=== PATIENT | male | born 1960 | race Caucasian/White ===

== ENCOUNTER 2016-10-17 05:51 | Day surgery (SDC) | payer OTHER ==
[2016-10-16 10:06] VITALS: BMI 43.0
[~2016-10-17 05:51] MED LIST: DEXAMETHASONE SOD PHOSPHATE 10 MG/ML 1 ML VIAL IV ONE; LACTATED RINGERS 1,000 ML IV SCH; MIDAZOLAM 2 MG/2 ML VIAL IV PRN; ONDANSETRON 4 MG/2 ML VIAL IVP ONE; SCOPOLAMINE 1.5MG/72HR PATCH TRANSDERM ONE; ceFAZolin 3 GM in SODIUM CHLORIDE 0.9% 100 ML IVPB ONE
[2016-10-17] MEDS ORDERED: LIDOCAINE 1% 20 ML VIAL (10MG/ML) FOR IV START INTRADERMA ONE (06:31)
[2016-10-17 06:35] LABS: Glucose,Whole Blood 107 mg/dL (75-99)
[2016-10-17] MEDS ORDERED: GLYCOPYRROLATE 0.2 MG/ML 2 ML VIAL ONE (07:25)
[2016-10-17] MEDS ORDERED: NEOSTIGMINE 1 MG/ML 10 ML VIAL ONE (07:25)
[2016-10-17] MEDS ORDERED: LIDOCAINE 1% INJ 10MG/ML (20 ML MDV) ONE (07:25)
[2016-10-17] MEDS ORDERED: SUCCINYLCHOLINE CHLORIDE VIAL 200 MG/10 ML VIAL IV ONE (07:25)
[2016-10-17] MEDS ORDERED: PROPOFOL 10 MG/ML 20 ML VIAL IV ONE (07:25)
[2016-10-17] MEDS ORDERED: ROCURONIUM BROMIDE 10 MG/ML 10 ML VIAL IV ONE (07:25)
[2016-10-17] MEDS ORDERED: PHENYLEPHRINE-0.9% NACL SYG 1 MG/10 ML SYRINGE ONE (07:25)
[2016-10-17] MEDS ORDERED: fentaNYL (PF) 50 MCG/ML 2 ML AMP ONE (07:25)
[2016-10-17] MEDS ORDERED: MIDAZOLAM 2 MG/2 ML VIAL ONE (07:25)
[2016-10-17] MEDS ORDERED: SODIUM CHLORIDE 0.9% 100 ML with CLINDAMYCIN 900 MG IV ONE ×2 (07:32)
[2016-10-17] MEDS ORDERED: CLINDAMYCIN 600 MG in SODIUM CHLORIDE 0.9% 1,000 ML IRRIGATION ONE (08:05)
[2016-10-17] MEDS: HYDROmorphone 1 MG/ML 1 ML SYRINGE IVP PRN ×3 (08:08→09:08)
[2016-10-17] MEDS ORDERED: BUPIVACAINE (PF) 0.5% 30 ML VIAL SQ ONE (08:22)
[2016-10-17] MEDS ORDERED: LACTATED RINGERS 1,000 ML IV ONE (08:35)
[2016-10-17] MEDS ORDERED: ONDANSETRON 4 MG/2 ML VIAL IVP PRN (08:52)
[2016-10-17] MEDS ORDERED: TEMAZEPAM 15 MG CAP PO PRN (08:52)
[2016-10-17] MEDS ORDERED: hydrOXYzine PAMOATE 25 MG CAP PO PRN (08:52)
[2016-10-17] MEDS ORDERED: HYDROmorphone 1 MG/ML 1 ML SYRINGE IVP PRN ×3 (08:52)
[2016-10-17] MEDS ORDERED: diphenhydrAMINE 25 MG CAP PO PRN (08:52)
[2016-10-17] MEDS ORDERED: SENNOSIDES-DOCUSATE SODIUM 1 EACH TAB PO PRN (08:52)
[2016-10-17] MEDS ORDERED: HYDROcodone/APAP 7.5-325MG 1 EACH TAB PO PRN (08:55)
[2016-10-17 10:45] LABS: Glucose,Whole Blood 162 mg/dL (75-99)
[2016-10-17 11:28] LABS: Glucose,Whole Blood 159 mg/dL (75-99)
[2016-10-17] MEDS ORDERED: BENZOCAINE/MENTHOL LOZENG 1 EACH LOZENGE MUCOUS MEM PRN (13:50)
[2016-10-17] MEDS: ceFAZolin 3 GM in SODIUM CHLORIDE 0.9% 100 ML IVPB SCH ×2 (15:47→23:24)
[2016-10-17 16:05] LABS: Basophils # (A) 0.1 k/uL (0-0.2); Basophils % (A) 1 %; CH 30.7; Eosinophils % (A) 0 %; HDW 2.85; HGB 16.5 gm/dL (13.0-17.5); Luc # (Auto) 0.06; Luc % (Auto) 1; Lymphocytes # (A) 0.6 k/uL (1.0-4.8); Lymphocytes % (A) 5 %; MCH 30.3 pg (25.0-35.0); MCHC 34.4 g/dL (31.0-37.0); MCV 88.1 fL (80.0-100.0); Mean Platelet Volume 6.9; Monocytes # (A) 0.4 k/uL (0-1.0); Monocytes % (A) 3 %; Neutrophils # (A) 11.5 k/uL (1.3-7.7); Neutrophils % (A) 91 %; RBC 5.45 m/uL (4.30-5.90); RDW 13.9 % (11.5-15.5); WBC 12.7 k/uL (3.8-10.6)
--- NOTE | 2016-10-17 16:52 | CONS ---
DATE OF CONSULTATION: REASON FOR CONSULTATION: Tachycardia. Patient is a very pleasant 56-year-old gentleman who came in with morbid obesity and came in for left rotator cuff repair and the patient denied any fever or chills. The patient denied any nausea, vomiting. Patient underwent surgery today. Patient did not pass gas yet. Patient has multiple other medical problems including hypertension, diabetes mellitus, hyperlipidemia. Patient is on Keflex at home. Patient does not know why he is on Keflex. Patient denied any significant pain. Patient pain is well controlled because of the nerve block he received during the surgery. REVIEW OF SYSTEMS: CONSTITUTIONAL: No fever, no malaise, no fatigue. HEENT: No recent visual problems or hearing problems. Denied any sore throat. CARDIOVASCULAR: No chest pain, orthopnea, PND, no palpitations, no syncope. PULMONARY: No shortness of breath, no cough, no hemoptysis. GASTROINTESTINAL: No diarrhea, no nausea, no vomiting, no abdominal pain. Normoactive bowel sounds. NEUROLOGICAL: No headaches, no weakness, no numbness. HEMATOLOGICAL: Denies any bleeding or petechiae. GENITOURINARY: Denies any burning micturition, frequency, or urgency. MUSCULOSKELETAL/RHEUMATOLOGICAL: Denies any joint pain, swelling, or any muscle pain. ENDOCRINE: Denies any polyuria or polydipsia. The rest of the 14 point review of systems is negative. PAST MEDICAL HISTORY: Significant for diabetes mellitus, hyperlipidemia, hypertension, benign prostatic hypertrophy, sleep apnea uses CPAP machine at home. Patient has had orthopedic surgeries in the past and joint replacements in the past. SOCIAL HISTORY: Former smoker. Quit smoking in 1992. Used to smoke 1 pack per day. Denied any alcohol abuse or any drug abuse. FAMILY HISTORY: Significant for skin cancer. PHYSICAL EXAMINATION: VITAL SIGNS: Temperature 98.5, pulse of 111, respiratory rate of 17, blood pressure is 123/81. Saturating at 92% on room air. GENERAL: The patient is alert and oriented x3, not in any acute distress. Well developed, well nourished. HEENT: Pupils are round and equally reacting to light. EOMI. No scleral icterus. No conjunctival pallor. Normocephalic, atraumatic. No pharyngeal erythema. No thyromegaly. CARDIOVASCULAR: S1 and S2 present. Patient is tachycardic. Patient has sinus tachycardia. No murmurs, rubs, or gallops were appreciated. PULMONARY: Chest is clear to auscultation, no wheezing or crackles. ABDOMEN: Soft, nontender, nondistended, normoactive bowel sounds. No palpable organomegaly. MUSCULOSKELETAL: defer to orthopedic surgery. EXTREMITIES: No cyanosis, clubbing, or pedal edema. NEUROLOGICAL: Gross neurological examination did not reveal any focal deficits. SKIN: No rashes. LABORATORY DATA: None available. ASSESSMENT AND PLAN: 1. Possible sinus tachycardia unsure of the exact etiology. We will just continue to monitor. We will obtain TSH level. Also obtain EKG to make sure it is sinus tachycardia. No further intervention at this point of time. It may be related to anticholinergics he is receiving and also scopolamine he had during the time of surgery, but anyways we will just monitor him for now. 2. Hypertension. I recommend to hold off Lisinopril at this point of time to prevent any perioperative hypertension. 3. Hyperlipidemia. 4. Diabetes mellitus type 2 and patient started eating now. Can be resumed on a metformin along with sliding scale insulin. 5. The patient will be continued on his home medications except for Lisinopril and we will continue to follow and we will obtain a TSH for his tachycardia. It it is mostly related to scopolamine patch he received during surgery. Thanks for letting me participate in this patient's care. We will continue to follow the patient on an as-needed basis. Patient's primary care physician is Dr. Jean Paul Vasquez.
[2016-10-17 17:02] LABS: Glucose,Whole Blood 138 mg/dL (75-99)
[2016-10-17] MEDS: LACTATED RINGERS 1,000 ML IV SCH ×2 (17:48→18:05)
[2016-10-17] MEDS: GEMFIBROZIL 600 MG TAB PO SCH (18:04)
[2016-10-17 20:01] LABS: Glucose,Whole Blood 152 mg/dL (75-99)
[2016-10-17] MEDS ORDERED: ATORVASTATIN 20 MG TAB PO SCH (21:00)
[2016-10-17] MEDS ORDERED: TERAZOSIN 2 MG CAP PO SCH (21:00)
[2016-10-17] MEDS: HYDROcodone/APAP 7.5-325MG 1 EACH TAB PO PRN (21:06)
[2016-10-18 01:10] VITALS: BP 155/71; PULSE 87; RESP 16; TEMP 97
[2016-10-18] MEDS: HYDROcodone/APAP 7.5-325MG 1 EACH TAB PO PRN ×2 (02:09→08:00)
[2016-10-18] MEDS: LACTATED RINGERS 1,000 ML IV SCH (05:36)
[2016-10-18 07:20] LABS: Anion Gap 12 mmol/L; Blood Urea Nitrogen 19 mg/dL (9-20); Calcium 9.4 mg/dL (8.4-10.2); Carbon Dioxide 27 mmol/L (22-30); Chloride 103 mmol/L (98-107); Glucose 130 mg/dL (74-99); Non-African American GFR(MDRD) >60 (>60 ml/min/1.73 sqM); Potassium 4.2 mmol/L (3.5-5.1); Sodium 142 mmol/L (137-145)
[2016-10-18 07:25] LABS: Glucose,Whole Blood 150 mg/dL (75-99)
[2016-10-18] MEDS ORDERED: metFORMIN 500 MG TAB PO SCH (07:30)
[2016-10-18] MEDS: GEMFIBROZIL 600 MG TAB PO SCH (08:01)
[2016-10-18] MEDS ORDERED: NIACIN TR 500 MG CAPSULE.ER PO SCH (09:00)
--- NOTE | 2016-10-18 09:08 | P.DS ---
Providers Expected date of discharge: 10/18/16 Attending physician: Juve Edwards Consults: 10/17/16 08:52 Consult Physician Routine Consulting Provider: Edson Messina Consult Reason/Comments: medical management Do you want consulting provider notified?: Yes Primary care physician: Jean Paul Vasquez - Discharge Diagnosis(es) (1) Rotator cuff tear Patient was admitted to the OR on 10/17/2016 to undergo open repair of left rotator cuff tear. He underwent the procedure well and tolerated without complication. He will discharge to home today. On day of discharge he is afebrile, vital signs stable, wound is benign, neurovascular status intact with full motor and sensation throughout the left upper extremity, 2+ radial pulses and less than 2 second cap refill present, no new complaints, no abdominal pain , and no calf pain. Review of systems negative for fever, chills, chest pain, shortness breath, nausea, vomiting, dizziness, headaches, rashes, bleeding, unsteady gait, slurred speech, calf pain or othe Current Visit: Yes Status: Acute Priority: Medium Patient Condition at Discharge: Good Plan - Discharge Summary New Discharge Prescriptions: Cephalexin [Keflex] 500 mg PO Q8HR #15 cap HYDROcodone/APAP 7.5-325MG [[place] 7.5-325] 1 - 2 tab PO Q4-6H PRN #60 tab PRN Reason: Pain Sennosides-Docusate Sodium [Senokot-S] 2 tab PO DAILY #30 tablet Discharge Medication List Dicyclomine HCl [Bentyl] 20 mg PO TID 07/18/16 [History] Gemfibrozil [Lopid] 600 mg PO AC-BID 07/18/16 [History] Lisinopril [Prinivil] 5 mg PO DAILY 07/18/16 [History] Niacin [Niacin ER] 1,000 mg PO DAILY 07/18/16 [History] Simvastatin [Zocor] 40 mg PO HS 07/18/16 [History] Terazosin [Hytrin] 2 mg PO HS 07/18/16 [History] metFORMIN HCL [Glucophage] 500 mg PO QAM 07/18/16 [History] Ibuprofen [Motrin] 800 mg PO DIRECTED PRN 10/16/16 [History] Cephalexin [Keflex] 500 mg PO Q8HR #15 cap 10/17/16 [Rx] HYDROcodone/APAP 7.5-325MG [[place] 7.5-325] 1 - 2 tab PO Q4-6H PRN #60 tab [Rx] Sennosides-Docusate Sodium [Senokot-S] 2 tab PO DAILY #30 tablet 10/17/16 [Rx] Follow up Appointment(s)/Referral(s): Juve Edwards DO [Doctor of Osteopathic Medicine] - 10 Days (10-14 days) Activity/Diet/Wound Care/Special Instructions: Keep incision clean and dry Change dressing daily May shower in 3 days if no drainage from incision Keep arm sling/abductor pillow in place except when bathing Follow up with Dr. Edwards in 10-14 days. Call [facility] with any questions or concerns. [phone] Discharge Disposition: HOME SELF-CARE
--- NOTE | 2016-10-22 11:52 | OP ---
DATE OF SERVICE: 10/17/2016 SURGEON: MARIA DEL CARMEN CASEY DO FOOD SAFETY TECHNICIAN: TAO SNOW NP PREOPERATIVE DIAGNOSIS: Torn rotator cuff tear. POSTOPERATIVE DIAGNOSIS: Torn rotator cuff tear. OPERATION: Resection of the distal left clavicle, revision acromioplasty and left rotator cuff repair. ANESTHESIA: ESTIMATED BLOOD LOSS: SPECIMENS REMOVED: COMPLICATIONS: OPERATIVE FINDINGS: DESCRIPTION OF PROCEDURE: Patient taken to the operative suite, placed in supine position. General inhalation anesthesia is performed by Department of Anesthesiology. Patient placed in beach chair position and arm secured. A Betadine prep was performed on the left shoulder. Sterile drapes applied in the usual manner. A midline invasive anterolateral incision developed of the acromion anterior, sharp dissection is carried out through the subcutaneous tissue. The inferior ligament is identified and dissected. The distal 1 cm of the clavicle is excised. The anterior deltoid muscle is dissected from the lateral border. The acromioclavicular ligament was revised. An anterolateral decompression acromioplasty is then performed. The width of the acromion is shaped with a bone saw and smoothed with a bone rasp. There is almost complete tearing of the supraspinatus tendon of the left rotator cuff. The area was irrigated. A #1 Ethibond suture was utilized in reapproximating the supraspinatus tendon. The area was irrigated with antibiotic solution. Deltoid was then reapproximated into the acromion with #1 Ethibond suture. The deep fascia was approximated with #1 Vicryl suture. The subcutaneous tissue was approximated with 2-0 Vicryl suture in subcuticular fashion. Skin approximated with 3-0 Quill suture in a subcuticular fashion. The incision was sealed with Dermabond. Sterile dressing was applied. The patient placed in abductor pillow splint. He was returned to the recovery room in satisfactory postop condition. GROSS PATHOLOGY: There is evidence of a partial tear in the left rotator cuff and the supraspinatus tendon demonstrating partial tear. [facility]
== END 2016-10-18 10:31 | disposition home or self-care (01) ==
LOC: OR 05:51 → 3SUR 08:48 → OR 10-18 10:31
PROVIDERS: ATTEND Orthopaedic Surgery
DX: S46.012A Strain of muscle(s) and tendon(s) of the rotator cuff of left shoulder, initial encounter (principal); E78.00 Pure hypercholesterolemia, unspecified; E11.9 Type 2 diabetes mellitus without complications; H91.90 Unspecified hearing loss, unspecified ear; E66.01 Morbid (severe) obesity due to excess calories; Z68.41 Body mass index [BMI] 40.0-44.9, adult; R00.0 Tachycardia, unspecified; I10 Essential (primary) hypertension; E78.5 Hyperlipidemia, unspecified; N40.0 Benign prostatic hyperplasia without lower urinary tract symptoms; G47.30 Sleep apnea, unspecified; Z99.89 Dependence on other enabling machines and devices; Z87.891 Personal history of nicotine dependence; Z88.0 Allergy status to penicillin; Z79.84 Long term (current) use of oral hypoglycemic drugs; Z79.891 Long term (current) use of opiate analgesic; Z79.899 Other long term (current) drug therapy; X58.XXXA Exposure to other specified factors, initial encounter
CPT/HCPCS: 23410; 23120; 64415; 80048; 84443; 85025; J2250; J0330; J1100; J2710; J0690; J2405; J2001; J3010; J1170; J2370; J2704

== ENCOUNTER → 2018-01-19 | Outpatient (CLI) | payer BC | END | disposition home or self-care (01) | LOC: LABPAT 10:33 | PROVIDERS: ATTEND Orthopaedic Surgery | DX: Z01.812 Encounter for preprocedural laboratory examination (principal); M16.11 Unilateral primary osteoarthritis, right hip | CPT/HCPCS: 87070 ==

== ENCOUNTER → 2018-01-19 | Outpatient (CLI) | payer BC, OTHER ==
[~2018-01-19] MED LIST changes: -DEXAMETHASONE SOD PHOSPHATE 10 MG/ML 1 ML VIAL IV ONE; -LACTATED RINGERS 1,000 ML IV SCH; -MIDAZOLAM 2 MG/2 ML VIAL IV PRN; -ONDANSETRON 4 MG/2 ML VIAL IVP ONE; +REGADENOSON 0.4 MG/5 ML SYRINGE IV ONE; -SCOPOLAMINE 1.5MG/72HR PATCH TRANSDERM ONE; -ceFAZolin 3 GM in SODIUM CHLORIDE 0.9% 100 ML IVPB ONE
--- NOTE | 2018-01-19 12:34 | EST ---
EXERCISE STRESS DATE OF SERVICE: 01/19/2018 AGE: 57 SEX: Male HT: 5'10" WT: 305 pounds PROTOCOL: Lexiscan Cardiolite STAGE: DURATION OF EXERCISE: HEART RATE REST: 81 BLOOD PRESSURE REST: 130/63 MAXIMUM HEART RATE ACHIEVED: 108 MAXIMUM BLOOD PRESSURE: 144/67 85% MPHR: 100% MPHR: METS: INDICATIONS: Hyperlipidemia. CLINICAL INFORMATION: Baseline EKG shows sinus rhythm, normal axis, normal intervals. Patient was given intravenous Lexiscan as per protocol. Did not have chest pain or diagnostic ST-segment depression. CONCLUSIONS: 1. Negative stress test by EKG criteria. 2. Cardiolite portion of the stress test will be reported separately. MMODL / IJN: [id number] /
--- NOTE | 2018-01-19 13:01 | NM ---
EXAMINATION TYPE: NM stress lexiscan cardiolite DATE OF EXAM: 01/19/2018 COMPARISON: NONE HISTORY: Hyperlipidemia TECHNIQUE: After the intravenous administration of 10.36 mCi Tc 99m Sestamibi - Cardiolite resting S PECT images acquired 50 minutes post injection. The patient received 0.4mg Lexiscan, 25.4 mCi Tc 99m Sestamibi - Stress images obtained [address] injection FINDINGS: Review of stress and rest SPECT images demonstrates decreased reaffirms significant uptake along the septum as well as inferolateral left ventricle on stress and rest images. Gated analysis shows questi onable paradoxical apical wall motion with an estimated left ventricular ejection fraction of 51 %. Lung the anterior wall left ventricle is some mild decreased uptake on stress as compared to rest eliel ges. 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 A Yellow level critical message alert has been initiated for Jean Paul Vasquez DO via the [employer] Critical Results System on 01/19/2018 12:58 PM. This message alert has been sent to Jean Paul rosales DO via the preferences provided by the clinician for the receipt of Radiology Critical Findings . Message ID [id number].
== END | disposition home or self-care (01) ==
LOC: RADNMMAIN 07:39
PROVIDERS: ATTEND Family Medicine
DX: E78.5 Hyperlipidemia, unspecified (principal)
CPT/HCPCS: 93017; 78452; A9500; J2785

== ENCOUNTER 2018-01-25 10:34 | Day surgery (SDC) | payer BC, OTHER ==
[2018-01-22 08:54] VITALS: BMI 43.7
[~2018-01-25 10:34] MED LIST changes: +ALPRAZolam 0.25 MG TAB PO PRN; +ALPRAZolam 0.5 MG TAB PO PRN; +ASPIRIN 325 MG TAB PO STA; +ATORVASTATIN 80 MG TAB PO STA; +NITROGLYCERIN SL TABS 0.4 MG TAB SUBLINGUAL PRN; -REGADENOSON 0.4 MG/5 ML SYRINGE IV ONE; +SODIUM CHLORIDE 0.9% 1,000 ML in EMPTY BAG 1 BAG IV ONE
[2018-01-25 11:14] VITALS: TEMP 98.8
[2018-01-25 11:19] LABS: Glucose,Whole Blood 113 mg/dL (75-99)
[2018-01-25] MEDS ORDERED: fentaNYL (PF) 50 MCG/ML 2 ML AMP ONE (12:17)
[2018-01-25] MEDS ORDERED: HEPARIN SODIUM 1,000 UN/ML (10ML VL) ONE (12:17)
[2018-01-25] MEDS ORDERED: VERAPAMIL 2.5 MG/ML 2 ML AMP ONE (12:17)
[2018-01-25] MEDS ORDERED: MIDAZOLAM 2 MG/2 ML VIAL ONE (12:17)
[2018-01-25] MEDS ORDERED: LIDOCAINE 2% INJ 20 MG/ML (20 ML MDV) ONE (12:17)
[2018-01-25] MEDS ORDERED: fentaNYL (PF) 50 MCG/ML 2 ML AMP IV ONE (12:22)
[2018-01-25] MEDS ORDERED: MIDAZOLAM 2 MG/2 ML VIAL IVP ONE (12:22)
[2018-01-25] MEDS ORDERED: LIDOCAINE 2% INJ 20 MG/ML SQ ONE (12:24)
[2018-01-25] MEDS: VERAPAMIL SYRINGE (5 MG/10 ML) INTRAARTER ONE ×2 (12:26→12:39)
[2018-01-25] MEDS ORDERED: HEPARIN SODIUM 1,000 UN/ML (10ML VL) IV ONE (12:28)
[2018-01-25] MEDS ORDERED: IOPAMIDOL-370 125ML BTL INJ ONE (12:37)
[2018-01-25] MEDS ORDERED: RX INFO: IV CONTRAST WAS GIVEN 1 EACH MISC MISCELLANE PRN (12:46)
--- NOTE | 2018-01-25 12:53 | P.PCN ---
Date of Procedure: 01/25/18 Preoperative Diagnosis: Positive stress test, diabetes and hypercholesterolemia. Preop evaluation for hip surgery Postoperative Diagnosis: Normal coronary arteries Procedure(s) Performed: Left heart catheterization without left ventriculography Description of Procedure: HISTORY: This is a 57-year-old gentleman with history of hypercholesteremia and diabetes who was going to have hip replacement. Patient had a stress test at the hospital which was reported as abnormal with the possibility of previous myocardial infarction and ischemia. Patient was given the option of having a dobutamine echo versus cardiac catheterization. Patient preferred to have cardiac catheterization for diagnosis. CONSENT:I have discussed the risks, benefits and alternative therapies for the above-mentioned procedure and for both sedation/analgesia as well as necessary blood product administration, if indicated, as they pertain to this patient. The patient has indicated understanding and acceptance of the risks and procedures discussed. PROCEDURE: Patient was brought to the lab in a fasting state. Patient was given some IV sedation. The right Wrist is infiltrated with lidocaine and right Radial artery was entered using Seldinger technique. A 6-Yoruba catheter was left in place and selective coronary arteriography was performed. Patient tolerated the procedure well. TR band was applied for hemostasis. No immediate complications were noted and patient was transferred to [facility] in a stable condition Conscious Sedation: Versed 1mg Fentanyl 50 g Duration 16minutes HEMODYNAMICS: The aortic pressure is about 110/70. Left ankle end-diastolic pressure is 12. There was no gradient across the aortic valve SELECTIVE CORONARY ARTERIOGRAPHY: . LEFT MAIN:Normal length and free of occlusive disease THE LEFT ANTERIOR DESCENDING CORONARY ARTERY: This is a fairly caliber vessel giving rise to moderate caliber diagonal and septal branches. The LAD and branches are free of any significant occlusive disease THE LEFT CIRCUMFLEX AND IS CORONARY ARTERY: This is a moderate caliber vessel giving rise good-sized OM branch. The circumflex is nondominant and free of any occlusive disease THE RIGHT CORONARY ARTERY:This is a huge caliber vessel giving rise to good-sized PDA and PLV. This is a dominant vessel free of occlusive disease LEFT VENTRICULOGRAPHY: Not performed FINAL IMPRESSION: Normal coronary arteries PLAN: Medical therapy and this factor modification PROGNOSIS: Good
[2018-01-25] MEDS ORDERED: SODIUM CHLORIDE 0.9% 1,000 ML IV SCH (13:00)
[2018-01-25 13:43] VITALS: RESP 16
[2018-01-25 14:44] VITALS: BP 111/62; PULSE 72
== END 2018-01-25 16:53 | disposition home or self-care (01) ==
LOC: CATHCVL 10:34
PROVIDERS: ATTEND Internal Medicine Cardiovascular Disease
DX: R94.39 Abnormal result of other cardiovascular function study (principal); I10 Essential (primary) hypertension; E11.9 Type 2 diabetes mellitus without complications; E78.00 Pure hypercholesterolemia, unspecified; Z82.49 Family history of ischemic heart disease and other diseases of the circulatory system; Z88.0 Allergy status to penicillin; Z87.891 Personal history of nicotine dependence; Z79.84 Long term (current) use of oral hypoglycemic drugs; Z79.899 Other long term (current) drug therapy
CPT/HCPCS: 93458; C1894; C1769; J2001; J2250; J3010; J1644; Q9967

== ENCOUNTER → 2018-02-26 | Outpatient (CLI) | payer OTHER ==
[2018-02-26 11:34] LABS: Basophils % (A) 1 %; Eosinophils # (A) 0.3 k/uL (0-0.7); Eosinophils % (A) 5 %; HCT 47.4 % (39.0-53.0); HGB 16.4 gm/dL (13.0-17.5); Lymphocytes # (A) 1.3 k/uL (1.0-4.8); Lymphocytes % (A) 24 %; MCH 30.3 pg (25.0-35.0); MCHC 34.5 g/dL (31.0-37.0); MCV 87.7 fL (80.0-100.0); Mean Platelet Volume 6.2; Monocytes # (A) 0.5 k/uL (0-1.0); Monocytes % (A) 9 %; Neutrophils # (A) 3.2 k/uL (1.3-7.7); Neutrophils % (A) 58 %; Platelet Count 225 k/uL (150-450); RBC 5.41 m/uL (4.30-5.90); RDW 13.4 % (11.5-15.5); WBC 5.4 k/uL (3.8-10.6)
[2018-02-26 11:35] LABS: INR 1.1 (<1.2); Prothrombin Time 10.4 sec (9.0-12.0)
[2018-02-26 12:07] LABS: Potassium 4.5 mmol/L (3.5-5.1)
== END | disposition home or self-care (01) ==
LOC: LABPAT 10:22
PROVIDERS: ATTEND Orthopaedic Surgery
DX: Z01.812 Encounter for preprocedural laboratory examination (principal); M16.11 Unilateral primary osteoarthritis, right hip
CPT/HCPCS: 36415; 80051; 85025; 85610

== ENCOUNTER 2018-03-09 05:49 | Inpatient (IN) | payer BC, OTHER ==
[2018-03-04 10:45] VITALS: BMI 43.7
--- NOTE | 2018-03-08 10:16 | HP ---
HISTORY AND PHYSICAL CHIEF COMPLAINT: Right hip pain. HISTORY OF PRESENT ILLNESS: The patient is a 57-year-old retired gentleman who presents with progressive right hip pain worsening over the past 6 months. He is having groin and thigh pain, worse with weightbearing activities. He does use a cane. He has been taking anti-inflammatories with partial relief. He notes the pain severely limits his normal function and activities. PAST MEDICAL HISTORY: Significant for fwj-ihiwsgw-itfxtrlou diabetes, hypercholesterolemia, and hypertension. PAST SURGICAL HISTORY: Significant for previous left knee surgery along with left shoulder surgery. CURRENT MEDICATIONS: 1. Lisinopril. 2. Gemfibrozil. 3. Dicyclomine. 4. Ibuprofen. 5. Metformin. 6. Simvastatin. 7. Terazosin. ALLERGIES: He has allergies to PENICILLIN. FAMILY HISTORY: Significant for heart disease and cancer. SOCIAL HISTORY: Significant for previous tobacco use; however, he quit in 1994. REVIEW OF SYSTEMS: Sixteen point review of systems otherwise reviewed and is noncontributory. PHYSICAL EXAMINATION: On examination, the patient is approximately 5 feet 10 inches, 305 pounds of endomorphic habitus. His BMI is calculated at 43.76. HEENT exam is nonfocal. Neck is supple. Passive motion right hip, flexion 75 degrees, external rotation with the hip flexed 50 degrees, internal rotation 0 degrees with pain. Clinically, he has got 1 cm shortening of the right lower extremity compared to the left. He does have an antalgic gait pattern. His distal neurovascular exam appears intact in the right lower extremity. An AP of the pelvis obtained in the office shows severe right hip osteoarthrosis and MRI from 12/17/2017 of the right hip shows the same along with an effusion. IMPRESSION: 1. Right hip symptomatic osteoarthrosis. 2. Increased body mass index with a body mass index of 43.76. 3. Jvi-rbvfjdi-wggrqbkiy diabetes. RECOMMENDATIONS: I talked to the patient regarding his condition and treatment options. At this point, he is quite symptomatic because of pain related to his osteoarthrosis despite conservative measures. After thorough discussion, he opts to proceed with surgery. We will plan to proceed with right total hip arthroplasty. Risks and benefits were discussed at length in layman's terms. We will institute DVT prophylaxis postoperatively. The patient underwent preoperative cardiac evaluation by Dr. Flores. He also underwent preoperative medical evaluation by ROSIO Hernandez. NUHA / BELEN: [id number] /
[~2018-03-09 05:49] MED LIST changes: +ACETAMINOPHEN TAB 500 MG TAB PO ONE; -ALPRAZolam 0.25 MG TAB PO PRN; -ALPRAZolam 0.5 MG TAB PO PRN; -ASPIRIN 325 MG TAB PO STA; -ATORVASTATIN 80 MG TAB PO STA; +DEXAMETHASONE SOD PHOSPHATE 10 MG/ML 1 ML VIAL IV ONE; +LIDOCAINE 1% 20 ML VIAL (10MG/ML) FOR IV START INTRADERMA PRN; +MELOXICAM 7.5 MG TAB PO ONE; +MIDAZOLAM 2 MG/2 ML VIAL IV PRN; -NITROGLYCERIN SL TABS 0.4 MG TAB SUBLINGUAL PRN; +ONDANSETRON 4 MG/2 ML VIAL IVP ONE; -SODIUM CHLORIDE 0.9% 1,000 ML in EMPTY BAG 1 BAG IV ONE; +TRANEXAMIC ACID 1,000 MG in SODIUM CHLORIDE 0.9% 50 ML IVPB ONE; +fentaNYL (PF) 50 MCG/ML 2 ML AMP IV PRN
[2018-03-09] MEDS: LACTATED RINGERS 1,000 ML IV SCH ×2 (06:36→21:24)
[2018-03-09 06:42] LABS: Glucose,Whole Blood 123 mg/dL (75-99)
[2018-03-09] MEDS ORDERED: fentaNYL (PF) 50 MCG/ML 2 ML AMP ONE (07:54)
[2018-03-09] MEDS ORDERED: PROPOFOL 10 MG/ML 20 ML VIAL IV ONE (07:54)
[2018-03-09] MEDS ORDERED: MIDAZOLAM 2 MG/2 ML VIAL ONE (07:54)
[2018-03-09] MEDS ORDERED: TRANEXAMIC ACID 1,000 MG/10 ML VIAL ONE (07:54)
[2018-03-09] MEDS ORDERED: SODIUM CHLORIDE 0.9% 100 ML BAG ONE (07:54)
[2018-03-09] MEDS ORDERED: ROPIVACAINE 246.25 MG, EPINEPHrine 0.5 MG, KETOROLAC 30 MG, cloNIDine HCL/PF 80 MCG, WA... MISCELLANE ONE ×5 (08:39)
[2018-03-09] MEDS ORDERED: ceFAZolin 3,000 MG in SODIUM CHLORIDE 0.9% IRRIGATIO 3,000 ML IRRIGATION ONE (08:45)
[2018-03-09] MEDS ORDERED: LACTATED RINGERS 1,000 ML IV ONE ×2 (09:30→12:52)
[2018-03-09] MEDS ORDERED: ONDANSETRON 4 MG/2 ML VIAL IVP PRN (10:12)
[2018-03-09] MEDS ORDERED: HYDROcodone/APAP 7.5-325MG 1 EACH TAB PO PRN (10:12)
[2018-03-09] MEDS ORDERED: NALOXONE 0.4 MG/ML 1 ML VIAL IV PRN (10:12)
[2018-03-09] MEDS ORDERED: MORPHINE SULFATE 4 MG/ML SYRINGE IV PRN (10:12)
[2018-03-09] MEDS ORDERED: MAGNESIUM HYDROXIDE 2,400 MG/10 ML CUP PO PRN (10:12)
[2018-03-09] MEDS ORDERED: MORPHINE SULFATE 2 MG/ML SYRINGE IVP PRN ×2 (10:12)
[2018-03-09] MEDS ORDERED: ACETAMINOPHEN TAB 325 MG TAB PO PRN (10:12)
--- NOTE | 2018-03-09 10:42 | P.OP ---
Date of Procedure: 03/09/18 Preoperative Diagnosis: Right hip severe osteoarthrosis Postoperative Diagnosis: Same Procedure(s) Performed: Right total hip [id number] Implants: Depuy Corail size 10 standard press-fit femoral stem, 36 mm +1.5 cobalt chrome femoral head, 56 mm acetabular shell with neutral polyethylene liner. Anesthesia: spinal Surgeon: German Felix Barrel Raiser #1: Devan Cisneros Estimated Blood Loss (ml): 500 Pathology: other (Head) Condition: stable Disposition: PACU Indications for Procedure: The patient's a 57-year-old male who presents with progressive right hip pain secondary to osteoarthrosis despite conservative measures. A discussion of the risks and benefits of operative intervention versus continued conservative measures was made with the patient. He was having significant pain and decided to proceed with surgery. Operative risks to include infection, neurovascular injury, development of blood clots, possible instability/dislocation, possible leg length discrepancy need for subsequent procedures was discussed. Informed consent was obtained. Operative Findings: As below Description of Procedure: The patient was brought to the operating room, and after induction of spinal anesthesia was placed in the lateral decubitus position. The bony prominences were appropriately padded. Preoperative templating previously was performed estimated component positioning incised. The right lower extremity was prepped and draped in normal fashion. A longitudinal incision extending approximately 12 cm was then made starting centered over the greater trochanter extending proximally to level of the ASIS and distally in line with the femoral shaft. The skin and subcutaneous tissues were divided sharply. Electrocautery was used for hemostasis. The fascia lester and gluteus aman fascia was split in line with the skin incision. The muscle fibers were bluntly dissected proximally. A self-retaining retractor was placed. The anterior and posterior margins the gluteus medius muscles identified in the anterior two thirds detached from the greater trochanter with electrocautery. The gluteus minimus tendon was identified and detached in a similar fashion. A wide capsulotomy was performed. The hip was gently dislocated. A femoral neck cut was then made with the sagittal saw approximately 1 1/2 cm above the level of the lesser trochanter at a 45 shaft. The head was then extracted. Attention was then paid towards preparing the acetabulum. Retractors were placed anterior and posteriorly. The residual labral and capsular tissue was debrided sharply clearly defining the acetabular margins. I began reaming with a 48 mm reamer taking care to initially medialize and then reaming at 45 of abduction and 20 of anteversion. Sequential reaming was performed up to 55 mm. A trial 56 mm acetabular shell was inserted at 45 of abduction and 20 of anteversion. There was good rim fit and stability. The trial component was then removed. The final 56 mm acetabular shell was inserted in the same orientation and was fully seated. I did place a 6.5 x 25 mm cancellus screw for additional fixation. Good purchase was obtained. A neutral polyethylene liner was gently impacted. Care was taken to avoid any soft tissue interposition. Pulsatile lavage was utilized. Attention was then paid towards preparing the proximal femur. A canal finder was used to find the femoral canal. A box chisel was used to open the metaphyseal region. Sequential broaching was performed up to a size 10. This was done with the leg perpendicular to the floor at approximately 15 of anteversion. The calcar mill was used to fashion the medial calcar. There was good rotational stability. A standard neck along with the 36 mm +1.5 head was placed. The hip was gently relocated. It was taken through range of motion. I had good stability in flexion and extension with internal and external rotation. I felt there was adequate rastafari of soft tissue tension. The hip was gently dislocated. The trial components were then removed. The final size 10 standard femoral stem was inserted in approximately 15 of anteversion and was fully seated. There was good rotational stability. A 36 mm+ 1.5 cobalt chrome femoral head was gently impacted. The hip was gently relocated. Again it was taken through range of motion and felt to be stable in flexion and extension with internal and external rotation. Pulsatile lavage was again utilized. With the hip in abduction, the gluteus medius and minimus tendons were reattached the greater trochanter with #2 Ethibond suture. A deep drain was placed. The fascia lester and gluteus aman fascia was closed with running #2 Ethibond suture. The deep subcu tissues were reapproximated interrupted 0 Vicryl sutures. The superficial subcutaneous tissues were reapproximated interrupted 2-0 Vicryl sutures. The skin was reapproximated with 3-0 subcuticular strata fix suture. Skin tape and adhesive was applied. A sterile dressing was applied. The patient was then awoken from sedation and transferred to recovery room in good condition. Blood loss was estimated at 500 mL. No complications were incurred. Sponge and needle counts were correct at the end the case.
--- NOTE | 2018-03-09 10:58 | XR ---
Limited right hip HISTORY: Status post right hip arthroplasty Single frontal view of the right hip There is an indwelling drain. Patient is status post right hip arthroplasty. Anatomic alignment is no jennifer. IMPRESSION: Orthopedic follow-up.
[2018-03-09 11:19] LABS: Glucose,Whole Blood 161 mg/dL (75-99)
[2018-03-09] MEDS ORDERED: MORPHINE SULFATE 4MG/4ML SYRG IVP ONE (15:09)
[2018-03-09] MEDS: traMADol 50 MG TAB PO SCH ×3 (16:11→21:26)
[2018-03-09 19:56] LABS: Glucose,Whole Blood 208 mg/dL (75-99)
--- NOTE | 2018-03-09 20:23 | CONS ---
CONSULTATION REASON FOR CONSULTATION: Advice regarding diabetes and other medical issues requested by Dr. Felix. HISTORY OF PRESENT ILLNESS: This 57-year-old gentleman with a past history of diabetes, hypertension, hyperlipidemia, DJD being followed by Dr. Vasquez in the [facility] in the outpatient setting underwent right hip arthroplasty by Dr. Felix. The patient tolerated the procedure well and the patient is being closely monitored. There is no history of chest pain. No palpitations, headache, loss of consciousness, nausea, vomiting, diarrhea, fever, rigors, chills at this time. PAST MEDICAL HISTORY: Diabetes, hypertension, hyperlipidemia, DJD, history of prostate disease, sleep apnea. MEDICATIONS: Prior to admission include home medications are: 1. Glucophage 500 mg q.a.m. 2. Hytrin 2 mg q.a.c. and q.h.s. 3. Zocor 40 mg q.h.s. 4. Niacin ER 500 mg p.o. b.i.d. 5. Prinivil 5 mg q.a.m. 6. Motrin 800 mg t.i.d. p.r.n. 7. Lopid 600 mg p.o. b.i.d. 8. Bentyl 20 mg p.o. b.i.d. 9. Vitamin D3 2000 daily. 10.Eliquis 2.5 mg b.i.d. ALLERGIES: PENICILLIN, FLOMAX. FAMILY HISTORY: History of skin cancer in the family. SOCIAL HISTORY: Previous history of smoking, occasional alcohol intake. REVIEW OF SYSTEMS: ENT: No diminished hearing or vision. CARDIOVASCULAR: No angina. RESPIRATORY: As mentioned earlier. GI: No nausea. : No dysuria. NERVOUS SYSTEM: No numbness or weakness. ALLERGY/IMMUNOLOGY: No asthma or hayfever. MUSCULOSKELETAL: As mentioned earlier. HEMATOLOGY/ONCOLOGY: No history of anemia. ENDOCRINE: As mentioned earlier. Diabetes mellitus. CONSTITUTIONAL: As mentioned earlier. DERMATOLOGY: Negative. RHEUMATOLOGY: Negative. PSYCHIATRY: As mentioned earlier. PHYSICAL EXAMINATION: Alert and oriented x3. Pulse is 80, blood pressure 131/58, respirations 16, temperature normal, pulse ox 96% on room air. HEENT: Conjunctivae normal. Oral mucosa moist. NECK: No jugular venous distention. No carotid bruit. No lymph node enlargement. CARDIOVASCULAR: S1, S2. RESPIRATORY: Breath sounds diminished in the bases. No rhonchi. No crackles. ABDOMEN: Soft, nontender. LEGS: Status post arthroplasty. NERVOUS SYSTEM: Higher functions as mentioned earlier. Moves all 4 limbs. No focal motor deficits. LYMPHATIC: No lymphadenopathy in the neck, axillae, groin.. SKIN: No ulcer, rash, bleeding. JOINTS: As mentioned earlier. LABS: Glucose 123, 161. ASSESSMENT: 1. Status post right total hip joint arthroplasty. 2. Diabetes mellitus type 2. 3. Hypertension. 4. Hyperlipidemia. 5. Degenerative joint disease. 6. Prostate disorder. 7. Sleep apnea. 8. Irritable bowel syndrome. 9. History of kidney stones. RECOMMENDATIONS AND DISCUSSION: In this 57-year-old gentleman recommend to continue the current management, symptomatic treatment. Resume the home medications. Accu-Cheks a.c. and NovoLog scale. Monitor blood sugars closely. Incentive spirometry. DVT prophylaxis. Will follow the patient closely. The patient may be asked to follow up with Dr. Vasquez closely after discharge. Thank you, Dr. Felix, for letting us participate in this patient. MMODL / IJN: [id number] /
[2018-03-09] MEDS ORDERED: SENNOSIDES-DOCUSATE SODIUM 1 EACH TAB PO SCH (21:00)
[2018-03-09] MEDS ORDERED: ATORVASTATIN 20 MG TAB PO SCH (21:00)
[2018-03-09] MEDS ORDERED: DOXAZOSIN 2 MG TAB PO SCH (21:00)
[2018-03-09] MEDS: DICYCLOMINE 20 MG TAB PO SCH (21:24)
[2018-03-09] MEDS: INSULIN ASPART 100 UNIT/ML 1 ML 10 ML VIAL SQ SCH (21:25)
[2018-03-09] MEDS: HYDROcodone/APAP 7.5-325MG 1 EACH TAB PO PRN (21:32)
[2018-03-10] MEDS: HYDROcodone/APAP 7.5-325MG 1 EACH TAB PO PRN (06:22)
[2018-03-10 07:01] LABS: Glucose,Whole Blood 124 mg/dL (75-99)
[2018-03-10] MEDS ORDERED: GEMFIBROZIL 600 MG TAB PO SCH (07:30)
[2018-03-10 07:44] LABS: Basophils % (A) 0 %; Eosinophils # (A) 0.2 k/uL (0-0.7); Eosinophils % (A) 1 %; HCT 42.6 % (39.0-53.0); HGB 14.3 gm/dL (13.0-17.5); Lymphocytes # (A) 2.6 k/uL (1.0-4.8); Lymphocytes % (A) 19 %; MCH 29.9 pg (25.0-35.0); MCHC 33.7 g/dL (31.0-37.0); MCV 88.8 fL (80.0-100.0); Mean Platelet Volume 6.3; Monocytes # (A) 0.9 k/uL (0-1.0); Monocytes % (A) 6 %; Neutrophils # (A) 9.6 k/uL (1.3-7.7); Neutrophils % (A) 71 %; Platelet Count 262 k/uL (150-450); RDW 13.5 % (11.5-15.5); WBC 13.5 k/uL (3.8-10.6)
[2018-03-10] MEDS: traMADol 50 MG TAB PO SCH ×2 (08:12→13:15)
[2018-03-10] MEDS: DICYCLOMINE 20 MG TAB PO SCH (08:13)
[2018-03-10] MEDS: INSULIN ASPART 100 UNIT/ML 1 ML 10 ML VIAL SQ SCH ×2 (08:13→12:29)
[2018-03-10] MEDS ORDERED: metFORMIN 500 MG TAB PO SCH (09:00)
[2018-03-10] MEDS ORDERED: LISINOPRIL 5 MG TAB PO SCH (09:00)
[2018-03-10] MEDS ORDERED: RIVAROXABAN 10 MG TAB PO SCH (09:00)
[2018-03-10] MEDS ORDERED: CHOLECALCIFEROL 1,000 UNIT TAB PO SCH (09:00)
[2018-03-10 10:56] VITALS: BP 113/72; PULSE 73; RESP 18; TEMP 98.9
[2018-03-10 11:54] LABS: Glucose,Whole Blood 104 mg/dL (75-99)
--- NOTE | 2018-03-10 12:18 | P.PN ---
Subjective Progress Note Date: 03/10/18 Principal diagnosis: Status post right total hip arthroplasty Patient seen today resting in his hospital bed, he appears comfortable. He is ambulating well with therapy. Denies any headaches, lightheadedness, chest pain or shortness of breath. Objective - Vital Signs Vital signs: Vital Signs Temp 98.9 F 03/10/18 07:00 Pulse 73 03/10/18 07:00 Resp 18 03/10/18 07:00 BP 113/72 03/10/18 07:00 Pulse Ox 95 03/10/18 07:00 Intake & Output 03/09/18 03/10/18 03/10/18 18:59 06:59 18:59 Intake Total 1901 610 Output Total 1110 1380 Balance 791 -770 Weight 138.346 kg Intake: IV 1901 Intake, IV Titration 610 Amount Lactated Ringers 1,000 ml 560 @ 70 mls/hr IV .[id number] [facility] Rx#:[id number] ceFAZolin 3 gm In Sodium 50 Chloride 0.9% 50 ml @ 50 mls/hr IVPB Q8HR [facility] Rx#: [id number] Output: Drainage 80 Right Hip 80 Urine 550 1300 Estimated Blood Loss 560 Other: Voiding Method Indwelling Catheter Indwelling Catheter - Exam Right lower extremity: Incision is clean, dry, and intact. The prineo tape is in good condition. There is minimal soft tissue swelling and ecchymosis surrounding the medial and lateral aspects of the incision. Calf is soft, no tenderness with palpation. Plantar flexion, dorsiflexion, EHL, FHL are intact. Sensory exam to light touch throughout the extremity is intact, dorsal pedis pulses 2+. - Labs CBC & Chem 7: 03/10/18 07:25 Labs: Abnormal Lab Results - Last 24 Hours (Table) 03/09/18 03/10/18 03/10/18 Range/Units 19:53 06:59 07:25 WBC 13.5 H (3.8-10.6) k/uL Neutrophils # 9.6 H (1.3-7.7) k/uL POC Glucose (mg/dL) 208 H 124 H (75-99) mg/dL 03/10/18 Range/Units 11:52 WBC (3.8-10.6) k/uL Neutrophils # (1.3-7.7) k/uL POC Glucose (mg/dL) 104 H (75-99) mg/dL Assessment and Plan Plan: Assessment: 1. Postop day #1 status post right total hip arthroplasty Plan: Pain control, we'll discharge home on oral medication GI and DVT prophylaxis,Eliquis 2.5 mg twice a day for 2 weeks Wound care instructions were discussed Home care after discharge Medical recommendations Discharge planning: Patient will be discharged home today Time with Patient: Less than 30
--- NOTE | 2018-03-10 12:23 | P.DS ---
Providers Date of admission: 03/09/18 05:49 Expected date of discharge: 03/10/18 Attending physician: German Felix Primary care physician: [facility] Hospital Course: Date of admission: 03/09/2018 Date of discharge: 03/10/2018 Admission diagnosis: Status post right total hip arthroplasty Discharge diagnosis: Same Attending physician: Dr. Felix Surgical procedures: Right total hip arthroplasty Brief history: Patient is a 57-year-old male with a history of progressive right hip osteoarthritis. At this point patient has failed conservative treatment measures and has opted to proceed with a elective right total hip arthroplasty. Hospital course: Details of patient's surgery can be found in operative report. Patient tolerated the procedure well and was subsequently transported to orthopedic floor. Patient's orthopeidc and medical care was provided daily. Patient had daily laboratory tests performed for evaluation of overall blood counts. Patient had daily physical therapy to include strengthening range of motion as well as education with walker ambulation. Patient was treated with Eliquis for their postoperative DVT prophylaxis during their inpatient stay. Patient was noted to have a relatively uneventful postoperative course. Patient reported satisfactory pain control with oral pain medications by postoperative day 0. Patient showed satisfactory progress with physical therapy. Patient moved steadily through the program and had no difficulty meeting the goals by postoperative day 1. Given patient's otherwise satisfactory course and having met physical therapy goals, plan is to discharge patient home on postoperative day 1. Discharge condition/disposition: Patient will be discharged home in stable condition. Discharge medications: Instructions are given on resumption of patient's normal daily medications per primary care recommendation, in addition patient will be prescribed [place] 7.5 mg/325 mg, tramadol 50 mg, Colace 100 mg, Eliquis 2.5mg. Discharge instructions: 1. Wound care and infection precautions, keep incision dry and covered while showering, no lotions, creams, moisturizers. No soaking, tubs, pools, hottubs. Do not scrub over the incision. 2. Weight-bear as tolerated with walker / cane until follow-up. 3. Ice and elevate when necessary. Do not exceed 20 minutes per hour with ice pack. 4. Utilize compression sleeve until seen at first follow up appointment. 5. Visiting nursing care. 6. Home physical therapy. 7. Pain meds and anticoagulants per prescription. 8. Pain medication has potential to cause constipation. Increase oral fluid and fiber intake. Contact primary care provider if you have not had a bowel movement within 48 hours after discharge 9. No anti-inflammatory medication until discussed at first post operative visit, this including Motrin, Aleve, Mobic, Diclofenac. 10. Follow up in office at 2 weeks postop with Thomas Cisneros PA-C 11. Follow up with your primary care doctor 7-10 days after discharge. 12. Contact [facility] with any questions, . Procedures: Right total hip arthroplasty Patient Condition at Discharge: Good Plan - Discharge Summary Discharge Rx Participant: Yes New Discharge Prescriptions: New Apixaban [Eliquis] 2.5 mg PO BID #30 tab Docusate [Colace] 100 mg PO DAILY #30 capsule HYDROcodone/APAP 7.5-325MG [[place] 7.5] 1 - 2 each PO Q6HR PRN #56 tab PRN Reason: Pain traMADol HCl [Ultram] 50 mg PO Q6H PRN #28 tab PRN Reason: Pain Discontinued Ibuprofen [Motrin] 800 mg PO TID PRN PRN Reason: Pain No Action Terazosin [Hytrin] 2 mg PO HS Simvastatin [Zocor] 40 mg PO HS Lisinopril [Prinivil] 5 mg PO QAM Gemfibrozil [Lopid] 600 mg PO AC-BID Dicyclomine HCl [Bentyl] 20 mg PO BID Niacin [Niacin ER] 500 mg PO BID metFORMIN HCL [Glucophage] 500 mg PO QAM Cholecalciferol (Vitamin D3) [Vitamin D3] 2,000 unit PO DAILY Discharge Medication List Dicyclomine HCl [Bentyl] 20 mg PO BID 07/18/16 [History] Gemfibrozil [Lopid] 600 mg PO AC-BID 07/18/16 [History] Lisinopril [Prinivil] 5 mg PO QAM 07/18/16 [History] Niacin [Niacin ER] 500 mg PO BID 07/18/16 [History] Simvastatin [Zocor] 40 mg PO HS 07/18/16 [History] Terazosin [Hytrin] 2 mg PO HS 07/18/16 [History] metFORMIN HCL [Glucophage] 500 mg PO QAM 07/18/16 [History] Cholecalciferol (Vitamin D3) [Vitamin D3] 2,000 unit PO DAILY 01/14/18 [History] Apixaban [Eliquis] 2.5 mg PO BID #30 tab 03/09/18 [Rx] Docusate [Colace] 100 mg PO DAILY #30 capsule 03/10/18 [Rx] HYDROcodone/APAP 7.5-325MG [[place] 7.5] 1 - 2 each PO Q6HR PRN #56 tab 03/10/18 [ Rx] traMADol HCl [Ultram] 50 mg PO Q6H PRN #28 tab 03/10/18 [Rx] Follow up Appointment(s)/Referral(s): Devan Cisneros, KAMLESH [PHYSICIAN [employer]] - 03/24/18 3:10 pm Activity/Diet/Wound Care/Special Instructions: Orthopedic Discharge Instructions: 1. Wound care and infection precautions, keep incision dry and covered while showering, no lotions, creams, moisturizers. No soaking, pools, hot tubs. Do not scrub over incision. 2. Weight-bear as tolerated with walker / cane until follow-up. 3. Ice and elevate when necessary. Do not exceed 20 minutes per hour with ice pack. 4. Utilize compression sleeve until seen at first follow up appointment. 5. Visiting nursing care. 6. Home physical therapy. 7. Pain meds and anticoagulants per prescription. 8. Pain medication has potential to cause constipation. Increase oral fluid and fiber intake. Contact primary care provider if you have not had a bowel movement within 48 hours after discharge. 9. No anti-inflammatory medication until discussed at first post operative visit, this including Motrin, Aleve, Mobic, Diclofenac. 10. Follow up in office at 2 weeks postop with Thomas Cisneros PA-C 11. Follow up with your primary care doctor 7-10 days after discharge. 12. Contact [facility] with any questions, . Discharge Disposition: HOME WITH HOME HEALTH SERVICES
[2018-03-10] MEDS: LACTATED RINGERS 1,000 ML IV SCH (12:29)
[2018-03-10 17:25] LABS: Hemoglobin A1C 5.7 % (4.0-6.0)
--- NOTE | 2018-03-11 14:28 | CDI ---
Last Revision, July 2017 Documentation Clarification Form Date: 03/11/18 From: Meredith Pedraza Phone: If you have a question regarding this query, please contact Ana Luisa Santiago at [phone] between 8am and 5pm. Admit Date: 03/09/2018 5:49:00 AM Patient Name: Ryan Zaidi Visit Number: [id number] Discharge Date: 03/10/18 ATTENTION: The Clinical Documentation Specialists (CDI) and [facility] Coding Staff appreciate your assistance in clarifying documentation. Please respond to the clarification below the line at the bottom and electronically sign. The CDI & [facility] Coding staff will review the response and follow-up if needed. Please note: Queries are made part of the Legal Health Record. If you have any questions, please contact the author of this message via ITS. Dr. Edson Felix documented that the patient's BMI is 43.76. History/Risk Factors: Patient was admitted for osteoarthritis of the right hip and right hip arthroplasty. The patient has a history of DM, hypertension, sleep apnea and hyperlipidemia. Clinical Indicators: Elevated BMI Patient Height: 5' 10" Patient Weight: 138.346 kg Calculated BMI is 43.76 In order to capture the severity of condition associated with patient BMI of 43.76, a clinical diagnoses needs to be documented by the physician. Please clarify: Obese Morbidly obese Other, please specify ____ Unable to determine Obese MTDD
--- NOTE | 2018-03-12 20:57 | P.PN ---
Subjective Progress Note Date: 03/10/18 Progress note being dictated for Dr. Messina. Interval history: This a 57-year-old gentleman status post right hip arthroplasty. Up with physical therapy, tolerated exertion well. Denies lightheadedness dizziness or focal deficits. Good diet intake with no nausea or vomiting. Passing flatus, no bowel movement. Patient has his own BiPAP at bedside> denies chest pain, palpitations or increasing shortness of breath. Pain controlled. Objective - Vital Signs Vital signs: Vital Signs Temp 98.9 F 03/10/18 07:00 Pulse 73 03/10/18 07:00 Resp 18 03/10/18 07:00 BP 113/72 03/10/18 07:00 Pulse Ox 95 03/10/18 07:00 Intake & Output 03/10/18 03/10/18 03/11/18 06:59 18:59 06:59 Intake Total 610 Output Total 1380 Balance -770 Intake: Intake, IV Titration 610 Amount Lactated Ringers 1,000 ml 560 @ 70 mls/hr IV .[id number] [facility] Rx#:[id number] ceFAZolin 3 gm In Sodium 50 Chloride 0.9% 50 ml @ 50 mls/hr IVPB Q8HR [facility] Rx#: [id number] Output: Drainage 80 Right Hip 80 Urine 1300 Other: Voiding Method Indwelling Catheter - Exam PHYSICAL EXAM: VITAL SIGNS: [As above] GENERAL: Sitting up in bed, no acute distress HEENT: Conjunctivae normal. eyes normal. Oral mucosa moist NECK: No JVD. No thyroid enlargement. No LNs CARDIOVASCULAR: S1, S2 muffled. No murmur RESPIRATION: Breath sounds diminished in the bases. No rhonchi or crackles. No bronchial breathing. ABDOMEN: Soft, nontender . No guarding. no masses palpable. .Bowel sounds heard. LEGS: Status post surgery PSYCHIATRY: Alert and oriented -3, mood and affect normal. NERVOUS SYSTEM: Cranial N 2-12 grossly normal. Moves all 4 limbs. No focal deficits. Skin: no ulcer no rash - Labs CBC & Chem 7: 03/10/18 07:25 Labs: Abnormal Lab Results - Last 24 Hours (Table) 03/09/18 03/10/18 03/10/18 Range/Units 19:53 06:59 07:25 WBC 13.5 H (3.8-10.6) k/uL Neutrophils # 9.6 H (1.3-7.7) k/uL POC Glucose (mg/dL) 208 H 124 H (75-99) mg/dL 03/10/18 Range/Units 11:52 WBC (3.8-10.6) k/uL Neutrophils # (1.3-7.7) k/uL POC Glucose (mg/dL) 104 H (75-99) mg/dL Assessment and Plan Assessment: 1. Status post right total hip arthroplasty 2. Diabetes mellitus type 2 3. Hypertension 4. Degenerative joint disease 5. Sleep apnea 6. Irritable bowel syndrome Plan: Continue on current medication regime ,monitoring and symptomatic treatment. Aggressive pulmonary toileting with incentive spirometer reinforced. Blood sugars controlled with continued close monitoring of Accu- Cheks. Pain management and DVT prophylaxis as per orthopedic surgery. Discharge planning in progress for today as per orthopedic surgery. Follow-up with PCP in 1 week. Further recommendations to follow. The impression and plan of care has been dictated as directed. : I performed a history and examination of this patient, discussed the same with the dictator. I agree with the dictator's note ,documented as a scribe. Any additional findings or plans will be noted.
== END 2018-03-10 14:35 | disposition home health service (06) | DRG 470 ==
LOC: 2ORMAIN 05:49 → 3SUR 15:25
PROVIDERS: ADMIT Orthopaedic Surgery; ATTEND Orthopaedic Surgery
PROC: 0SR902A Replacement of Right Hip Joint with Metal on Polyethylene Synthetic Substitute, Uncemented, Open Approach (ICD-10-PCS; principal; 2018-03-09 08:00)
DX: M16.11 Unilateral primary osteoarthritis, right hip (principal); Z68.41 Body mass index [BMI] 40.0-44.9, adult; E66.9 Obesity, unspecified; E11.9 Type 2 diabetes mellitus without complications; E78.00 Pure hypercholesterolemia, unspecified; E78.5 Hyperlipidemia, unspecified; G47.30 Sleep apnea, unspecified; I10 Essential (primary) hypertension; K58.9 Irritable bowel syndrome, unspecified; N42.9 Disorder of prostate, unspecified; Z79.84 Long term (current) use of oral hypoglycemic drugs; Z79.899 Other long term (current) drug therapy; Z88.0 Allergy status to penicillin; Z87.891 Personal history of nicotine dependence; Z87.442 Personal history of urinary calculi
CPT/HCPCS: 73501; 83036; 85025; 86850; 86900; 86901; 88300

== ENCOUNTER 2018-12-04 12:44 | Emergency (ER) | payer BC, OTHER ==
[2018-12-04 12:54] VITALS: RESP 18; TEMP 97.5
[2018-12-04] MEDS ORDERED: LIDOCAINE 1% INJ 10MG/ML (20 ML MDV) SQ ONE (13:22)
[2018-12-04] MEDS ORDERED: DIPH,PERTUS(ACELL)TETVAC-LF 0.5 ML VIAL IM ONE (13:38)
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
[2018-12-04 14:13] VITALS: BP 125/71; PULSE 72
== END 2018-12-04 14:15 | disposition home or self-care (01) ==
LOC: EC 12:44
DX: S81.812A Laceration without foreign body, left lower leg, initial encounter (principal); E11.9 Type 2 diabetes mellitus without complications; E78.5 Hyperlipidemia, unspecified; I10 Essential (primary) hypertension; K58.9 Irritable bowel syndrome, unspecified; N40.0 Benign prostatic hyperplasia without lower urinary tract symptoms; G47.30 Sleep apnea, unspecified; Z87.891 Personal history of nicotine dependence; Z88.0 Allergy status to penicillin; Z88.8 Allergy status to other drugs, medicaments and biological substances; Z79.84 Long term (current) use of oral hypoglycemic drugs; Z79.899 Other long term (current) drug therapy; Z99.89 Dependence on other enabling machines and devices; Z23 Encounter for immunization; W17.2XXA Fall into hole, initial encounter; W26.8XXA Contact with other sharp object(s), not elsewhere classified, initial encounter; Y93.29 Activity, other involving ice and snow
CPT/HCPCS: 90715; 99283; 90471; 12002; J2001

== ENCOUNTER 2019-10-06 12:22 | Day surgery (SDC) | payer OTHER ==
[2019-10-04 15:52] VITALS: BMI 43.7
[2019-10-06 13:16] LABS: Glucose,Whole Blood 105 mg/dL (75-99)
[2019-10-06 13:48] LABS: Basophils # (A) 0.1 k/uL (0-0.2); Basophils % (A) 1 %; Eosinophils # (A) 0.2 k/uL (0-0.7); Eosinophils % (A) 3 %; HCT 45.7 % (39.0-53.0); HGB 16.3 gm/dL (13.0-17.5); Lymphocytes # (A) 1.5 k/uL (1.0-4.8); Lymphocytes % (A) 23 %; MCH 31.4 pg (25.0-35.0); MCHC 35.6 g/dL (31.0-37.0); MCV 88.2 fL (80.0-100.0); Mean Platelet Volume 6.9; Monocytes # (A) 0.4 k/uL (0-1.0); Monocytes % (A) 6 %; Neutrophils % (A) 62 %; Platelet Count 207 k/uL (150-450); RBC 5.18 m/uL (4.30-5.90); RDW 13.3 % (11.5-15.5); WBC 6.5 k/uL (3.8-10.6)
[2019-10-06 13:52] LABS: African American GFR (CKD) >90 (>60 ml/min/1.73 sqM); Anion Gap 10 mmol/L; Blood Urea Nitrogen 24 mg/dL (9-20); Calcium 9.6 mg/dL (8.4-10.2); Carbon Dioxide 26 mmol/L (22-30); Chloride 105 mmol/L (98-107); Glucose 109 mg/dL (74-99); Non-African American GFR(CKD) 85 (>60 ml/min/1.73 sqM); Potassium 4.2 mmol/L (3.5-5.1); Sodium 141 mmol/L (137-145)
[2019-10-06] MEDS ORDERED: MIDAZOLAM 2 MG/2 ML VIAL ONE (15:03)
[2019-10-06] MEDS ORDERED: PROPOFOL 10 MG/ML 20 ML VIAL IV ONE (15:03)
[2019-10-06] MEDS ORDERED: diphenhydrAMINE 50 MG/ML 1 ML VIAL ONE (15:03)
[2019-10-06] MEDS ORDERED: fentaNYL (PF) 50 MCG/ML 2 ML AMP ONE (15:03)
[2019-10-06] MEDS ORDERED: IV FLUID CONTINUATION 900 ML IV ONE (15:10)
--- NOTE | 2019-10-06 15:36 | P.HPCAR ---
History of Present Illness This is Kae Edwards PA-C dictating and H&P on this patient The patient was interviewed and examined by me as well as by Dr. Cardenas Case discussed with Dr. Cardenas and he agrees with the plan of care HPI Patient is a 59-year-old male with a history of hypertension, obstructive sleep apnea on CPAP, diabetes, dyslipidemia, cardiomyopathy, and symptomatic PVCs and NSVT who presented for further evaluation of NSVT. Patient had been having frequent episodes of palpitations. He underwent evaluation with an event monitor which showed PVCs and NSVT with QRS fractionation. He has had a cath in the past showing normal coronary arteries. Recent echocardiogram showed reduced LV systolic function, EF around 45%, global hypokinesis, normal RV. His beta blockers were increased and he continued to have palpitations. No syncope. An EP study was recommended for further evaluation. Patient seen and examined resting in bed. Continues to complain of palpitations. No dizziness or syncope. No chest pain or shortness of breath. No recent infections. ROS: No fevers, chills or rigors, no cough, phlegm or expectoration, no nausea, vomiting or diarrhea, no hematuria, dysuria, no musculoskeletal complaints, no strokes or seizures, no skin lesions. EXAMINATION: Patient is afebrile, pulse in the 90s, blood pressure 172/78, oxygen saturation 90% on room air, respirations Patient seen and examined resting in bed, in no acute distress Heart is regular, no audible murmurs Lungs clear to auscultation bilaterally No elevated JVD No lower extremity edema Abdomen soft and nontender to palpation REVIEW OF LABS, ECG & MEDICAL DATA WBC 6.5, hemoglobin 16.3, platelets 207, potassium 4.2, BUN 24, creatinine 0.97 IMPRESSION / ASSESSMENT: Symptomatic episodes of NSVT with QRS fractionation Nonischemic cardiomyopathy, EF around 45% Hypertension Diabetes Dyslipidemia Obstructive sleep apnea PLAN: Proceed with diagnostic EP study and further management based upon findings Would also consider a cardiac MRI however the patient has severe claustrophobia as well as a new artificial hip Past Medical History Past Medical History: Diabetes Mellitus, Hyperlipidemia, Hypertension, Prostate Disorder, Sleep Apnea/CPAP/BIPAP Additional Past Medical History / Comment(s): IBS, HX KIDNEY STONES, C-PAP,BPH., SEE CARDIOLOGY H & P.hx sepsis History of Any Multi-Drug Resistant Organisms: None Reported Past Surgical History: Joint Replacement, Orthopedic Surgery Additional Past Surgical History / Comment(s): LEFT KNEE ARTHROSCOPY, left knee REPLACEMENT, RT hip replacment,EGD,COLONOSCOPY,lt shoulder repair Past Anesthesia/Blood Transfusion Reactions: No Reported Reaction Additional Past Anesthesia/Blood Transfusion Reaction / Comment(s): no hx blood transfusion Past Psychological History: No Psychological Hx Reported Additional Psychological History / Comment(s): claustrophobic Smoking Status: Former smoker Past Alcohol Use History: Occasional Additional Past Alcohol Use History / Comment(s): STARTED SMOKING 1977,QUIT 1992 WAS SMOKING 1 PPD. Past Drug Use History: None Reported - Past Family History Father Family Medical History: Cancer, Coronary Artery Disease (CAD) Additional Family Medical History / Comment(s): SKIN CANCER Mother Family Medical History: No Reported History Additional Family Medical History / Comment(s): MOM HEALTHY Brother(s) Family Medical History: Coronary Artery Disease (CAD) Additional Family Medical History / Comment(s): CAD 2 brothers Results 10/06/19 13:06 10/06/19 13:06 CBC 10/06/19 Range/Units 13:06 WBC 6.5 (3.8-10.6) k/uL RBC 5.18 (4.30-5.90) m/uL Hgb 16.3 (13.0-17.5) gm/dL Hct 45.7 (39.0-53.0) % Plt Count 207 (150-450) k/uL Comprehensive Metabolic Panel 10/06/19 Range/Units 13:06 Sodium 141 (137-145) mmol/L Potassium 4.2 (3.5-5.1) mmol/L Chloride 105 (98-107) mmol/L Carbon Dioxide 26 (22-30) mmol/L BUN 24 H (9-20) mg/dL Creatinine 0.97 (0.66-1.25) mg/dL Glucose 109 H (74-99) mg/dL Calcium 9.6 (8.4-10.2) mg/dL Current Medications Generic Name Dose Route Start Last Admin Trade Name Freq PRN Reason Stop Dose Admin Sodium Chloride 1,000 mls @ 20 mls/hr 10/06/19 06:24 Saline 0.9% IV .Q24H WEI 10/06/19 13:06 10/06/19 13:06
[2019-10-06] MEDS ORDERED: LIDOCAINE 1% INJ 10MG/ML (20 ML MDV) SQ ONE ×2 (15:40→15:44)
[2019-10-06] MEDS ORDERED: LIDOCAINE 1% INJ 10MG/ML (20 ML MDV) ONE (15:44)
[2019-10-06] MEDS ORDERED: HEPARIN SODIUM (1,000 UNIT/ML) 1,000 UNIT in SODIUM CHLORIDE 0.9% 1,000 ML IRRIGATION ONE (15:54)
[2019-10-06] MEDS ORDERED: LACTATED RINGERS 1,000 ML IV ONE (17:33)
[2019-10-06] MEDS ORDERED: HYDROcodone/APAP 5-325MG 1 EACH TAB PO PRN (17:34)
[2019-10-06] MEDS ORDERED: ACETAMINOPHEN IV (For NPO) 1,000 MG in EMPTY BAG 1 BAG IVPB ONE (17:34)
[2019-10-06] MEDS ORDERED: ACETAMINOPHEN TAB 325 MG TAB PO PRN (17:34)
[2019-10-06] MEDS: SODIUM CHLORIDE 0.9% 1,000 ML IV SCH (19:38)
[2019-10-06] MEDS: DICYCLOMINE 20 MG TAB PO SCH (20:19)
[2019-10-06] MEDS: NIACIN TR 500 MG CAPLET PO SCH (20:19)
[2019-10-06] MEDS: METOPROLOL TARTRATE 50 MG TAB PO SCH (20:19)
[2019-10-06] MEDS ORDERED: ATORVASTATIN 20 MG TAB PO SCH (21:00)
[2019-10-06] MEDS ORDERED: DOXAZOSIN 2 MG TAB PO SCH (21:00)
[2019-10-07] MEDS: SODIUM CHLORIDE 0.9% 1,000 ML IV SCH (06:00)
[2019-10-07 06:03] VITALS: BP 111/66; RESP 15; TEMP 98.3
[2019-10-07] MEDS ORDERED: FUROSEMIDE 10 MG/ML 2 ML VIAL IV ONE (07:31)
[2019-10-07] MEDS: METOPROLOL TARTRATE 50 MG TAB PO SCH (07:43)
[2019-10-07] MEDS: NIACIN TR 500 MG CAPLET PO SCH (07:44)
[2019-10-07] MEDS: DICYCLOMINE 20 MG TAB PO SCH (07:44)
--- NOTE | 2019-10-07 07:53 | P.DS ---
Providers Attending physician: Eligio Cardenas Primary care physician: [facility] Course: Patient is doing well. He sitting comfortably in bed no JVD no dizziness lightheadedness Breath sounds are decreased bilaterally with scattered crackles line heart sounds S1 and S2 normal no murmurs or gallop No arrhythmias His telemetry ECG shows sinus rhythm with normal ST segments Blood pressure 123 with symptoms of mercury pulse rate in the 60s afebrile 98.5F Impression Mild nonischemic cardiomyopathy Frequent PVCs and occasional runs of nonsustained ventricular tachycardia Successful ablation of an RVOT VT focus, junction of posterior wall and free wall of the RVOT 6 mm below the pulmonic valve No further PVCs noted Plan 1 dose of Lasix Ambulate in the hallways Discharge home Follow with Dr. Flores as before within the week No changes in medications Continue metoprolol for mild nonischemic cardiomyopathy Plan - Discharge Summary Discharge Rx Participant: Yes New Discharge Prescriptions: No Action Terazosin [Hytrin] 2 mg PO HS Simvastatin [Zocor] 40 mg PO HS Lisinopril [Prinivil] 5 mg PO QAM Gemfibrozil [Lopid] 600 mg PO AC-BID Niacin [Niacin ER] 500 mg PO BID metFORMIN HCL [Glucophage] 500 mg PO QAM Cholecalciferol (Vitamin D3) [Vitamin D3] 2,000 unit PO DAILY Dicyclomine [Bentyl] 20 mg PO BID Metoprolol Tartrate [Lopressor] 50 mg PO BID Discharge Medication List Gemfibrozil [Lopid] 600 mg PO AC-BID 07/18/16 [History] Lisinopril [Prinivil] 5 mg PO QAM 07/18/16 [History] Niacin [Niacin ER] 500 mg PO BID 07/18/16 [History] Simvastatin [Zocor] 40 mg PO HS 07/18/16 [History] Terazosin [Hytrin] 2 mg PO HS 07/18/16 [History] metFORMIN HCL [Glucophage] 500 mg PO QAM 07/18/16 [History] Cholecalciferol (Vitamin D3) [Vitamin D3] 2,000 unit PO DAILY 01/14/18 [History] Dicyclomine [Bentyl] 20 mg PO BID 10/04/19 [History] Metoprolol Tartrate [Lopressor] 50 mg PO BID 10/04/19 [History] Follow up Appointment(s)/Referral(s): Linda Flores MD [STAFF PHYSICIAN] - 1 Week (Follow-up with Dr. Flores in one week) Activity/Diet/Wound Care/Special Instructions: Post EP study - Ablation instructions 1. Keep access sites dry for 2 days. 2. No heavy lifting or straining for 2 days. 3. Avoid bending the hips repeatedly for 2 days. 4. You may go up and down stairs slowly Call if the following is noted 1. Bleeding, increasing swelling or pain at the access sites. 2. Increasing chest discomfort, especially upon taking a deep breath. 3. Increasing shortness of breath, at rest or with exertion. 4. Undue cough / phlegm 5. Difficulty or pain while swallowing. 6. Pain or change in color in the extremities. 7. Fever, chills, rigors. 8. Increasing headache or neurologic symptoms. 9. Dizziness, fainting, palpitations Discharge Disposition: HOME SELF-CARE
--- NOTE | 2019-10-07 08:29 | PCN ---
PROCEDURE NOTE Ryan Zaidi is a 59-year-old male patient of Dr. Flores who follows in the [facility] who has a history of mild cardiomyopathy with random nonsustained ventricular tachycardia which is symptomatic despite beta blockers. He was brought in for a diagnostic EP study and possible radiofrequency ablation. DESCRIPTION OF PROCEDURE: The patient was brought to the EP lab in the fasting state. Written informed consent was obtained prior to the procedure. The right and left groins were prepped and draped as per protocol. One percent lidocaine was used for local anesthesia. Three venous sheaths are placed in the right common femoral vein. Then by these diagnostic mapping and ablation catheters and intracardiac echo catheters are placed. The diagnostic catheters were placed in the high right atrium, in the His bundle area, and the RV. Isuprel was used. The sinus cycle length was 794 milliseconds, WV interval 157 milliseconds, QRS 106 milliseconds, and QT 388 milliseconds. The AH interval is 78 milliseconds, HV interval 35 milliseconds. Frequent PVCs are noted in the baseline state. The PVC morphology is as follows. There is a left bundle branch block morphology with a late transition in V4 and upright QRS in the inferior leads with notching at the peak and upright QRS in lead one and a notched upright QRS in lead AVL and negative QRS in AVR. A diagnostic EP study was performed. Sinus node recovery time at 600 milliseconds was 1168 milliseconds. The corrected sinus node recovery time is within normal limits. AV node Wenckebach block is 400 milliseconds. There was stimulation noted of the right ventricle from 400 down to 200 milliseconds, did not induce any ventricular tachycardia. Intracardiac echo was performed. A 3D electroanatomic mapping was performed. The right ventricle was mapped. A 3D anatomic map of the right ventricle and RVOT was made with tagging of the tricuspid, annulus, and the pulmonic valves as well as the aortic root. The patient was having frequent PVCs and an activation map was then performed and irrigated tip ablation catheters were placed in the right ventricle. The RVOT was mapped. The PVCs were mapped to the posterior free wall of the right ventricular outflow tract. The earliest bipolar signal was -24 milliseconds from the onset of the QRS with a very sharp negative unipolar which is also early. Pace mapping here revealed a near perfect pace map. RF ablation were applied here at 20 snyder, then 25, and then 30 snyder. Catheter stability was an issue and therefore the patient was asked to take a deep breath and hold it. This definitely helped with catheter stability and we were able to perform RF ablation exactly at this earliest activation. Once RF ablations are applied, no further PVCs were noted. Burst stimulation is performed from the RVOT. No VT was induced. High-dose Isuprel was used. Burst stimulation is performed from 400 milliseconds down to 200 milliseconds. Ventricular extra stimulation is performed. No PVCs were induced and the Isuprel was stopped and during recovery, no PVCs were noted. At the end of the procedure, intracardiac echocardiography revealed that there was no pericardial effusion and the left ventricular function was below normal range. RESULT: Diagnostic EP study revealing RVOT PVCs from the posterior false/free wall RVOT junction just under the pulmonic valve. Successful RF ablation is performed for PVC/PT. These were rendered completely noninducible and no PVCs are noted at the end of the procedure. PLAN: Continue current medications. Continue beta blockers for his history of mild cardiomyopathy. Follow with Dr. Flores at the [facility]. Please note that the earliest focus was 6 mm below the pulmonic valve. MMODL / IJN: [id number] /
--- NOTE | 2019-10-07 08:47 | LTR ---
October 06, 2019 RE: Ryan Zaidi Dear Dr. Vasquez: I had the pleasure of seeing Mr. Ryan Zaidi, date of is 1960, in electrophysiology follow up. Ryan underwent a diagnostic EP study and he had very frequent PVCs from the posterior false/free wall of the right ventricular outflow tract. These were mapped and successfully ablated. It appears these were rendered completely noninducible. Thereafter, an EP study was performed on and off Isuprel and no sustained or nonsustained VT could be induced. Hopefully, this takes care of his nonsustained ventricular tachycardia completely. However, since he has a history of mild cardiomyopathy, we will continue his beta blockers for now and he will follow with you and Dr. Flores as before. Thank you for entrusting me with the care of your patient. Warm regards. Sincerely, NUHA / BELEN: [id number] /
[2019-10-07] MEDS ORDERED: FENOFIBRATE 160 MG TAB PO SCH (09:00)
[2019-10-07] MEDS ORDERED: LISINOPRIL 5 MG TAB PO SCH (09:00)
[2019-10-07] MEDS ORDERED: metFORMIN 500 MG TAB PO SCH (09:00)
[2019-10-07 09:09] VITALS: PULSE 66
== END 2019-10-07 12:20 | disposition home or self-care (01) ==
LOC: CATHEP 12:22 → 1SOBS 18:28 → CATHEP 10-07 12:20
PROVIDERS: ATTEND Internal Medicine Clinical Cardiac Electrophysiology
DX: I47.2 Ventricular tachycardia (principal); I42.8 Other cardiomyopathies; I10 Essential (primary) hypertension; I49.3 Ventricular premature depolarization; E78.5 Hyperlipidemia, unspecified; G47.33 Obstructive sleep apnea (adult) (pediatric); Z99.89 Dependence on other enabling machines and devices; E11.9 Type 2 diabetes mellitus without complications; E66.9 Obesity, unspecified; Z68.41 Body mass index [BMI] 40.0-44.9, adult; K58.9 Irritable bowel syndrome, unspecified; Z87.442 Personal history of urinary calculi; N40.0 Benign prostatic hyperplasia without lower urinary tract symptoms; Z96.652 Presence of left artificial knee joint; Z96.641 Presence of right artificial hip joint; F40.240 Claustrophobia; Z87.891 Personal history of nicotine dependence; Z86.19 Personal history of other infectious and parasitic diseases; Z82.49 Family history of ischemic heart disease and other diseases of the circulatory system; Z85.89 Personal history of malignant neoplasm of other organs and systems; Z88.0 Allergy status to penicillin; Z79.84 Long term (current) use of oral hypoglycemic drugs; Z79.899 Other long term (current) drug therapy; Z88.8 Allergy status to other drugs, medicaments and biological substances
CPT/HCPCS: 93623; 93662; 93654; 80048; 85025; C1894; C1769 ×2; C1759; C1732; J2250; J1200; J1940; J2001; J3010; J1644; J0131; J2704

== ENCOUNTER → 2020-05-11 | Outpatient (CLI) | payer OTHER ==
[2020-05-11 13:12] LABS: Basophils % (A) 0 %; Eosinophils # (A) 0.2 k/uL (0-0.7); Eosinophils % (A) 2 %; HCT 48.5 % (39.0-53.0); HGB 16.1 gm/dL (13.0-17.5); Lymphocytes # (A) 1.5 k/uL (1.0-4.8); Lymphocytes % (A) 19 %; MCH 30.1 pg (25.0-35.0); MCHC 33.2 g/dL (31.0-37.0); MCV 90.8 fL (80.0-100.0); Mean Platelet Volume 6.6; Monocytes # (A) 0.4 k/uL (0-1.0); Monocytes % (A) 5 %; Neutrophils # (A) 5.6 k/uL (1.3-7.7); Neutrophils % (A) 72 %; Platelet Count 213 k/uL (150-450); RBC 5.34 m/uL (4.30-5.90); RDW 13.2 % (11.5-15.5); WBC 7.7 k/uL (3.8-10.6)
[2020-05-11 13:31] LABS: Calcium 9.5 mg/dL (8.4-10.2); Potassium 4.8 mmol/L (3.5-5.1)
== END | disposition home or self-care (01) ==
LOC: LABPAT 11:25
PROVIDERS: ATTEND Urology
DX: Z01.818 Encounter for other preprocedural examination (principal); C61 Malignant neoplasm of prostate
CPT/HCPCS: 36415; 80048; 85025; 93005

== ENCOUNTER 2020-05-18 05:36 | Day surgery (SDC) | payer OTHER ==
[2020-05-14 12:15] VITALS: BMI 38.7
[~2020-05-18 05:36] MED LIST changes: -ACETAMINOPHEN TAB 500 MG TAB PO ONE; -DEXAMETHASONE SOD PHOSPHATE 10 MG/ML 1 ML VIAL IV ONE; +LEVOFLOXACIN 500MG-D5W PMX 500 MG in DEXTROSE/WATER 1 100ML.BAG IVPB ONE; -LIDOCAINE 1% 20 ML VIAL (10MG/ML) FOR IV START INTRADERMA PRN; -MELOXICAM 7.5 MG TAB PO ONE; -MIDAZOLAM 2 MG/2 ML VIAL IV PRN; -ONDANSETRON 4 MG/2 ML VIAL IVP ONE; -TRANEXAMIC ACID 1,000 MG in SODIUM CHLORIDE 0.9% 50 ML IVPB ONE; -fentaNYL (PF) 50 MCG/ML 2 ML AMP IV PRN
[2020-05-18] MEDS ORDERED: MIDAZOLAM 2 MG/2 ML VIAL IV PRN (05:54)
[2020-05-18] MEDS ORDERED: LIDOCAINE 1% (10MG/ML) FOR IV START INTRADERMA PRN (05:54)
[2020-05-18] MEDS ORDERED: ONDANSETRON 4 MG/2 ML VIAL IVP ONE (05:54)
[2020-05-18] MEDS ORDERED: DEXAMETHASONE SOD PHOSPHATE 10 MG/ML 1 ML VIAL IV ONE (05:54)
[2020-05-18] MEDS ORDERED: HEPARIN SODIUM,PORCINE 5,000 UNIT/ML 1 ML VIAL SQ ONE (06:00)
--- NOTE | 2020-05-18 06:43 | P.GSHP ---
History of Present Illness H&P Date: 05/18/20 Chief Complaint: Prostate cancer The patient is a 60-year-old white male found in January to have an elevated PSA level of 4.10, up from 3. and March 2019. He reports moderate obstructive voiding symptoms. He has taken terazosin for several years, without benefit. He underwent a prostate ultrasound with biopsies. The prostate volume was 89 mL. 2 of 12 biopsies showed low volume Columbia 7 (3+4) adenocarcinoma, at the left base and left lateral base. His Prolaris score of 4.1 was somewhat increased. - Constitutional Constitutional: Reports weight loss - Cardiovascular Cardiovascular: Denies chest pain - Respiratory Respiratory: Denies dyspnea - Genitourinary (Male) Genitourinary: Reports impotence, Reports urinary hesitancy, Denies dysuria, Denies hematuria Past Medical History Past Medical History: Cancer, Diabetes Mellitus, Hyperlipidemia, Hypertension, Osteoarthritis (OA), Pneumonia, Prostate Disorder, Sleep Apnea/CPAP/BIPAP Additional Past Medical History / Comment(s): prostate CA-dx Mar 2020-no chemo or radiation.IBS, HX KIDNEY STONES, C-PAP,BPH., SEE CARDIOLOGY H & P.hx sepsis, bronchitis History of Any Multi-Drug Resistant Organisms: None Reported Past Surgical History: Joint Replacement, Orthopedic Surgery Additional Past Surgical History / Comment(s): LEFT KNEE ARTHROSCOPY, left knee REPLACEMENT, RT hip replacment,EGD,COLONOSCOPY,lt shoulder repair Past Anesthesia/Blood Transfusion Reactions: No Reported Reaction Additional Past Anesthesia/Blood Transfusion Reaction / Comment(s): no hx blood transfusion Smoking Status: Former smoker - Past Family History Father Family Medical History: Cancer, Coronary Artery Disease (CAD) Additional Family Medical History / Comment(s): SKIN CANCER Mother Family Medical History: No Reported History Additional Family Medical History / Comment(s): MOM HEALTHY Brother(s) Family Medical History: Congestive Heart Failure (CHF), Myocardial Infarction (ND) Additional Family Medical History / Comment(s): 1 brother with ND,1 brother with CHF,1 brother cancer growth removed from outside of kidney Medications and Allergies Home Medications Medication Instructions Recorded Confirmed Type Lisinopril [Prinivil] 5 mg PO QAM 07/18/16 05/18/20 History Niacin [Niacin ER] 500 mg PO BID 07/18/16 05/18/20 History Simvastatin [Zocor] 40 mg PO HS 07/18/16 05/18/20 History Terazosin [Hytrin] 2 mg PO HS 07/18/16 05/18/20 History gemfibroziL [Lopid] 600 mg PO AC-BID 07/18/16 05/18/20 History metFORMIN HCL [Glucophage] 500 mg PO HS 07/18/16 05/18/20 History Cholecalciferol (Vitamin D3) 2,000 unit PO DAILY 01/14/18 05/18/20 History [Vitamin D3] Dicyclomine [Bentyl] 20 mg PO BID 10/04/19 05/18/20 History Metoprolol Tartrate [Lopressor] 50 mg PO QAM 10/04/19 05/18/20 History Metoprolol Tartrate [Lopressor] 25 mg PO 1800 05/14/20 05/18/20 History Allergies Allergy/AdvReac Type Severity Reaction Status Date / Time Penicillins Allergy Rash/Hives Verified 05/18/20 06:33 tamsulosin [From Flomax] Allergy Rash/Hives Verified 05/18/20 06:33 Surgical - Exam - General well developed, well nourished, no distress - Neck no masses, trachea midline - Respiratory normal respiratory effort, clear to auscultation - Cardiovascular Rhythm: regular Abnormal Heart Sounds: no systolic murmur, no diastolic murmur, no rub, no S3 Gallop, no S4 Gallop, no click, no other - Abdomen Abdomen: soft, non tender, no guarding, no rigid, no rebound Hernia: no none, no inguinal, no epigastric, no incisional, no reducible, no femoral, no umbilical, no scrotal, no incarcerated - Genitourinary normal penis with no external lesions, testicles non-tender - Rectum Rectum: normal sphincter tone, no masses, other (Prostate enlarged but smooth) - Psychiatric oriented to time, oriented to person, oriented to place, speech is normal, memory intact Assessment and Plan (1) Malignant neoplasm of prostate Current Visit: Yes Status: Acute Code(s): C61 - MALIGNANT NEOPLASM OF PROSTATE SNOMED Code(s): 329160771 Plan: The patient has low volume Columbia 7 adenocarcinoma, which is likely organ confined. Options of management include robotic-assisted laparoscopic prostatec pratik (RALP), IMRT, and active surveillance. He has opted to undergo RALP, primarily for relief of his voiding symptoms in addition to eradication of his malignancy. He has lost a significant amount of weight preoperatively. I had a lengthy discussion with he and his regarding the anticipated perioperative course, and potential risks which include anesthesia, bleeding, infection, bowel injury, vascular injury, and urinary leak. The possible need to convert to an open procedure was discussed. He is aware of potential long-term issues pertaining to urinary incontinence and erectile dysfunction. He is also were aware of the possible need for adjuvant therapy.
[2020-05-18] MEDS: LACTATED RINGERS 1,000 ML IV SCH (06:45)
[2020-05-18 06:47] LABS: Glucose,Whole Blood 117 mg/dL (75-99)
[2020-05-18] MEDS ORDERED: PROPOFOL 10 MG/ML 20 ML VIAL IV ONE (07:25)
[2020-05-18] MEDS ORDERED: NEOSTIGMINE 1 MG/ML 10 ML VIAL ONE (07:25)
[2020-05-18] MEDS ORDERED: HYDROmorphone (PF) 1 MG/ML ONE (07:25)
[2020-05-18] MEDS ORDERED: MIDAZOLAM 2 MG/2 ML VIAL ONE (07:25)
[2020-05-18] MEDS ORDERED: fentaNYL (PF) 50 MCG/ML 2 ML AMP ONE (07:25)
[2020-05-18] MEDS ORDERED: SUCCINYLCHOLINE CHLORIDE 100 MG/5 ML SYR IV ONE (07:25)
[2020-05-18] MEDS ORDERED: GLYCOPYRROLATE 0.2 MG/ML 2 ML VIAL ONE (07:25)
[2020-05-18] MEDS ORDERED: ROCURONIUM BROMIDE 10 MG/ML 5 ML VIAL IV ONE (07:25)
[2020-05-18] MEDS ORDERED: BUPIVACAINE (PF) 0.25% 30 ML VIAL SQ ONE (08:09)
[2020-05-18] MEDS ORDERED: LACTATED RINGERS 1,000 ML IV ONE (09:59)
[2020-05-18] MEDS ORDERED: HYDROmorphone 1 MG/ML 1 ML SYRINGE IVP PRN (11:47)
[2020-05-18] MEDS ORDERED: ONDANSETRON 4 MG/2 ML VIAL IVP PRN (11:47)
[2020-05-18] MEDS: HYDROmorphone 0.5 MG/0.5 ML SYRINGE IVP PRN ×2 (12:00→12:05)
[2020-05-18] MEDS: KETOROLAC 15 MG/ML 1 ML VIAL IVP PRN ×2 (12:05→19:03)
[2020-05-18 12:15] LABS: Glucose,Whole Blood 152 mg/dL (75-99)
[2020-05-18] MEDS ORDERED: BENZOCAINE/MENTHOL LOZENG 1 EACH LOZENGE MUCOUS MEM PRN (14:55)
[2020-05-18] MEDS ORDERED: METOPROLOL TARTRATE 25 MG TAB PO SCH (18:00)
[2020-05-18] MEDS: DEXTROSE 5%-0.45% NACL 1,000 ML IV SCH ×2 (18:21→21:01)
[2020-05-18] MEDS: DICYCLOMINE 20 MG TAB PO SCH (18:23)
[2020-05-18] MEDS: HEPARIN SODIUM,PORCINE 5,000 UNIT/ML 1 ML VIAL SQ SCH (21:00)
[2020-05-18] MEDS ORDERED: ATORVASTATIN 20 MG TAB PO SCH (21:00)
[2020-05-18] MEDS ORDERED: metFORMIN 500 MG TAB PO SCH (21:00)
[2020-05-19] MEDS: DEXTROSE 5%-0.45% NACL 1,000 ML IV SCH ×2 (00:51→13:51)
[2020-05-19] MEDS: LACTATED RINGERS 1,000 ML IV SCH (05:44)
[2020-05-19 05:52] VITALS: PULSE 54
[2020-05-19] MEDS ORDERED: METOPROLOL TARTRATE 50 MG TAB PO SCH (09:00)
[2020-05-19] MEDS ORDERED: FENOFIBRATE 160 MG TAB PO SCH (09:00)
[2020-05-19] MEDS ORDERED: lisinopriL 5 MG TAB PO SCH (09:00)
[2020-05-19] MEDS: HEPARIN SODIUM,PORCINE 5,000 UNIT/ML 1 ML VIAL SQ SCH (09:20)
[2020-05-19] MEDS: DICYCLOMINE 20 MG TAB PO SCH (09:26)
--- NOTE | 2020-05-19 09:37 | P.OP ---
Date of Procedure: 05/18/20 Preoperative Diagnosis: Adenocarcinoma of the prostate, clinical stage TIc NX M0 Postoperative Diagnosis: Same Procedure(s) Performed: Robotic-assisted laparoscopic prostatectomy (RALP) Anesthesia: ANAHI Surgeon: Brandon Chaparro Ladies Underwear Operator #1: Sarah Onofre Estimated Blood Loss (ml): 150 IV fluids (ml): 1,300 Pathology: other (Prostate and seminal vesicles, bladder calculus) Condition: stable Disposition: PACU Indications for Procedure: The patient is a 60-year-old white male found in January to have an elevated PSA level of 4.10, up from 3. and March 2019. He reports moderate obstructive voiding symptoms. He has taken terazosin for several years, without benefit. He underwent a prostate ultrasound with biopsies. The prostate volume was 89 mL. 2 of 12 biopsies showed low volume Lala 7 (3+4) adenocarcinoma, at the left base and left lateral base. His Prolaris score of 4.1 was somewhat increased. Operative Findings: Significantly enlarged prostate. No evidence of extraprostatic disease. Bladder calculus. Description of Procedure: The patient was taken in the operating room and placed in the dorsal lithotomy position, with his legs supported in Koby stirrups. He was carefully positioned on a beanbag for stability. The abdomen and external genitalia were prepped and draped sterilely. A Graves catheter was inserted. The Veress needle was passed through the anterior abdominal wall immediately cephalad to the umbilicus, and insufflation was performed to a pressure of 20 mm Hg. Once insufflation was performed, the Veress needle was removed and a supraumbilical incision was made, through which a 12 mm camera port was placed. Under camera guidance, 3 8 mm robotic ports were placed, 2 on the left and one on the right. An additional 12 mm port was placed on the right lateral side for use as an producer assistant port. A 5 mm port was placed to the right of the camera port for suction. The patient was placed in Trendelenburg position, and docking was then performed to the da Svetlana system utilizing a 4-arm approach. The abdomen was examined. The sigmoid colon was mobilized out of the pelvis. The peritoneum was incised lateral to the medial umbilical ligaments bilaterally, exposing the pubis. The peritoneum was then incised across the midline, allowing the bladder flap to be taken down. The endopelvic fascia was opened bilaterally, and muscular attachments from the urogenital diaphragm were swept away from the prostate. The vesical neck was incised transversely, down to the lumen. The Graves catheter was brought out through the anterior vesical neck incision and was used for traction. The posterior aspect of the vesical neck was incised, such that the full-thickness of the vesical neck was divided. The patient did have a median lobe, and the dissection was performed around the median lobe to ensure that it was excised in its entirety. The anterior layer of the Denonvilliers fascia was incised, exposing the vas deferens. Each were isolated and divided. Next, each of the seminal vesicles were dissected away from adjacent tissues, and vascular attachments were cauterized and divided. The posterior leaf of Den onvilliers fascia was incised transversely, allowing entry into the plane between the prostate and rectum. With lateral spreading, this plane was developed down to the apex. This exposed the lateral vascular pedicles bilaterally. These were clipped and divided in an antegrade fashion, down to the apex. The remaining apical attachments were swept away from the prostate. The dorsal venous complex was incised, as well as periurethral tissue. At this point, only the urethra remained intact. This was transected immediately distal to the prostatic apex using cold scissors. The specimen was placed within a specimen bag. The dorsal venous complex was sutured using a V-Loc suture in a running fashion. The suture was passed through the periosteum of the pubis periurethral support. A second V-Loc suture was then used to place the Arpan stitch, incorporating the rhabdosphincter and the edge of Denonvilliers fascia. This allowed the bladder to be taken down to the urethra, leaving the vesical neck immediately adjacent to the urethra. The vesicourethral anastomosis was then performed using a V-Loc suture in a running fashion. After completing the anastomosis, an 18-Cambodian Graves catheter was placed and approximately 150 mL of 0.9 normal saline were instilled into the bladder. No extravasation of irrigant from the vesicourethral anastomosis was noted. A small amount of oozing was noted from the vascular pedicles, so Surgicel was placed bilaterally. Tisseel was sprayed into the pelvis over the vascular pedicles, dorsal vein, and vesicourethral anastomosis. The patient was returned to the supine position. Undocking was performed, and the specimen bag sutures were passed through the camera port. After removing all the ports and allowing all of the CO2 to be released from the peritoneal cavity, the camera port incision was enlarged to allow removal of the surgical specimen. The fascia of this incision was then closed using 1-0 PDS suture in a running fashion. Each of the skin incisions were then closed using 4-0 Monocryl suture in a subcuticular fashion. Marcaine was injected at each of the incision sites. Dermabond was applied to each incision. The Graves catheter was connected to gravity drainage. All sponge and needle counts were correct. The patient tolerated the procedure well was taken to the recovery room in stable condition.
--- NOTE | 2020-05-19 11:12 | P.DS ---
Providers Expected date of discharge: 05/19/20 Attending physician: Brandon Chaparro Primary care physician: [facility] - Discharge Diagnosis(es) (1) Malignant neoplasm of prostate Current Visit: Yes Status: Acute Hospital Course: On the day of admission, the patient underwent an uncomplicated RALP. A bladder calculus was removed at the time of surgery. The perioperative course was unremarkable. He remained afebrile with stable vital signs. On the first postoperative day, he reported incisional discomfort but otherwise felt well. He denied chest pain, dyspnea, and nausea. He tolerated breakfast. He had yet to ambulate. On examination, the incisions were clean and dry. The Graves catheter was draining clear yellow urine. Procedures: Robotic-assisted laparoscopic prostatectomy (RALP) on 05/18/2020 Patient Condition at Discharge: Good Plan - Discharge Summary Discharge Rx Participant: Yes New Discharge Prescriptions: New Ciprofloxacin HCl [Cipro] 250 mg PO Q12HR #6 tablet Hydrocodone/Acetaminophen [Gilman 5-325] 1 - 2 each PO Q4HR PRN #6 tab PRN Reason: Pain Ketorolac [Toradol] 10 mg PO Q6HR #10 tab No Action Terazosin [Hytrin] 2 mg PO HS Simvastatin [Zocor] 40 mg PO HS Lisinopril [Prinivil] 5 mg PO QAM gemfibroziL [Lopid] 600 mg PO AC-BID Niacin [Niacin ER] 500 mg PO BID metFORMIN HCL [Glucophage] 500 mg PO HS Cholecalciferol (Vitamin D3) [Vitamin D3] 2,000 unit PO DAILY Dicyclomine [Bentyl] 20 mg PO BID Metoprolol Tartrate [Lopressor] 50 mg PO QAM Metoprolol Tartrate [Lopressor] 25 mg PO 1800 Discharge Medication List Lisinopril [Prinivil] 5 mg PO QAM 07/18/16 [History] Niacin [Niacin ER] 500 mg PO BID 07/18/16 [History] Simvastatin [Zocor] 40 mg PO HS 07/18/16 [History] Terazosin [Hytrin] 2 mg PO HS 07/18/16 [History] gemfibroziL [Lopid] 600 mg PO AC-BID 07/18/16 [History] metFORMIN HCL [Glucophage] 500 mg PO HS 07/18/16 [History] Cholecalciferol (Vitamin D3) [Vitamin D3] 2,000 unit PO DAILY 01/14/18 [History] Dicyclomine [Bentyl] 20 mg PO BID 10/04/19 [History] Metoprolol Tartrate [Lopressor] 50 mg PO QAM 10/04/19 [History] Metoprolol Tartrate [Lopressor] 25 mg PO 1800 05/14/20 [History] Ciprofloxacin HCl [Cipro] 250 mg PO Q12HR #6 tablet 05/19/20 [Rx] Hydrocodone/Acetaminophen [Gilman 5-325] 1 - 2 each PO Q4HR PRN #6 tab 05/19/20 [Rx] Ketorolac [Toradol] 10 mg PO Q6HR #10 tab 05/19/20 [Rx] Follow up Appointment(s)/Referral(s): Brandon Chaparro MD [STAFF PHYSICIAN] - 05/28/20 Activity/Diet/Wound Care/Special Instructions: Discharge home with Graves catheter. Instruct patient to use overnight drainage bag as well as urinary leg bag. Okay to shower. Diet as tolerated. No lifting, driving, or strenuous activity. Reassure patient that abdominal wall ecchymosis and penoscrotal swelling are normal. Instruct patient to begin taking antibiotics one day prior to Graves catheter removal. Discharge Disposition: HOME SELF-CARE
[2020-05-19] MEDS: KETOROLAC 15 MG/ML 1 ML VIAL IVP PRN (11:55)
[2020-05-19 12:52] VITALS: BP 108/65; RESP 16; TEMP 97.6
== END 2020-05-19 14:25 | disposition home or self-care (01) ==
LOC: OR 05:36 → 6NMEDSUR 11:56 → OR 05-19 10:09
PROVIDERS: ADMIT Urology; ATTEND Urology
DX: C61 Malignant neoplasm of prostate (principal); N21.0 Calculus in bladder; N40.1 Benign prostatic hyperplasia with lower urinary tract symptoms; N13.8 Other obstructive and reflux uropathy; I10 Essential (primary) hypertension; I47.1 Supraventricular tachycardia; G47.33 Obstructive sleep apnea (adult) (pediatric); K58.9 Irritable bowel syndrome, unspecified; E11.9 Type 2 diabetes mellitus without complications; E78.5 Hyperlipidemia, unspecified; M19.90 Unspecified osteoarthritis, unspecified site; E66.9 Obesity, unspecified; Z99.89 Dependence on other enabling machines and devices; Z68.39 Body mass index [BMI] 39.0-39.9, adult; Z87.442 Personal history of urinary calculi; Z87.01 Personal history of pneumonia (recurrent); Z87.891 Personal history of nicotine dependence; Z79.84 Long term (current) use of oral hypoglycemic drugs; Z79.899 Other long term (current) drug therapy; Z88.0 Allergy status to penicillin; Z88.8 Allergy status to other drugs, medicaments and biological substances; Z96.652 Presence of left artificial knee joint; Z96.641 Presence of right artificial hip joint; Z98.890 Other specified postprocedural states; Z80.8 Family history of malignant neoplasm of other organs or systems; Z82.49 Family history of ischemic heart disease and other diseases of the circulatory system
CPT/HCPCS: 55866; 86900; 86901; 86850; 88309; G0378; C1762; J2250; J1644; J1100; J2710; J2405; J1956; J3010; J1170 ×3; J1885 ×2; J0330; J2704